=== PATIENT | male | born 1935 | race Caucasian/White ===

== ENCOUNTER 2017-01-27 11:40 | Inpatient (IN) | payer OTHER, MEDICARE ==
--- NOTE | 2017-01-27 12:01 | PDOC ---
History of Present Illness - General Chief Complaint: Respiratory Stated Complaint: COUGH Time Seen by Provider: 01/27/17 12:00 - History of Present Illness Initial Comments: 01/27/17 12:43 Chief complaint: Coughing up blood History of present illness: Patient states that he coughed up blood mixed with clear sputum on Thursday 2 times, and again today. He admits an intermittent cough but no purulent sputum. No chest pain or shortness of breath. Review of systems: Leg swelling bilaterally since Thursday improves with recumbency. As noted, no chest pain, shortness of breath, abdominal pain, nausea , vomiting, diarrhea, urinary tract symptoms, new visual or focal neurologic symptoms, unsteadiness of gait. His Parkinson's disease is stable Past medical history: Parkinson's on levo dopa, borderline glucose intolerance, high blood pressure, controlled without medication. Bladder cancer, resolved Social history: Lives with his , active, no smoking alcohol or other drugs Family history: Reviewed and noncontributory including early coronary artery disease, neurologic disease, metabolic disease including diabetes, and cancer Physical exam: Alert, somewhat cachectic, no acute distress. No tachypnea or dyspnea noted Afebrile, vital signs stable except for a moderately low oxygen saturation of 90 % on room air. PERRLA, fundi benign, ENT clear Neck supple without bruit mass or nodes Lungs clear to P&A with full breath sounds throughout bilaterally. No tachypnea or dyspnea. No splinting. CV S1 and S2 distant without murmur rub or gallop pulses full and symmetric no JVD or edema Abdomen soft nontender without mass or organomegaly Extremities trace pedal edema bilaterally. No posterior calf swelling or tenderness Neurological minimal tremor, minimal rigidity, no focal deficits, cranial nerves intact, gait stable Impression: Hemoptysis without definite evidence of respiratory infection including fever, or purulent sputum. This could still be an occult bronchitis or pneumonia, but less likely pulmonary embolus, even though there is been no travel, no hormone use, and no smoking Plan: Labs and chest x-ray, consider further imaging if indicated. O2 supplementation. Past History - Past Medical History Allergies/Adverse Reactions: Allergies Allergy/AdvReac Type Severity Reaction Status Date / Time No Known Allergies Allergy Verified 01/27/17 11:43 Home Medications: Ambulatory Orders Multivitamin [Daily Vitamin Formula] 1 each PO DAILY tablet 11/17/16 Carbidopa/Levodopa [Carbidopa-Levodopa 25-100 Tab] 1 each PO TID tablet Cancer: Yes (BLADDER CA) Diabetes: Yes HTN: Yes Hypercholesterolemia: Yes Other medical history: PARKINSON'S - Surgical History Abdominal Surgery: Yes - Psycho/Social/Smoking Cessation Hx Anxiety: No Suicidal Ideation: No Smoking History: Never smoked Information on smoking cessation initiated: No *Physical Exam - Vital Signs Last Vital Signs Temp Pulse Resp BP Pulse Ox 98.6 F 95 H 17 142/71 90 L 01/27/17 11:40 01/27/17 11:40 01/27/17 11:40 01/27/17 11:40 01/27/17 11:40 ED Treatment Course - LABORATORY CBC & Chemistry Diagram: 01/27/17 12:20 01/27/17 12:20 Medical Decision Making - Medical Decision Making 01/27/17 16:51 White blood count is normal. Remainder of the labs and urine without significant abnormalities. EKG with no acute changes. 01/27/17 18:11 Chest x-ray reveals diffuse infiltrates in both lung cisse, most dramatic in the left lower lobe, also visible on lateral. This is in tyson contrast to a prior x-ray from 12/01/2016, which was clear. This is likely a viral pneumonia, although diffuse interstitial lung disease or even tuberculosis are possibilities. Patient is admitted to the hospitalist service, discussed with WINIFRED Leal Hospitalist, acting for Dr. Card. Concern for atypical pneumonia or TB was discussed. Cultures were obtained and antibiotics were started, and the patient is awaiting a negative pressure bed. He is hemodynamically stable. 01/27/17 18:16 *DC/Admit/Observation/Transfer Diagnosis at time of Disposition: Pneumonia Qualifiers: Pneumonia type: due to unspecified organism Laterality: bilateral Lung location : lower lobe of lung Qualified Code(s): J18.9 - Pneumonia, unspecified organism - Discharge Dispostion Condition at time of disposition: Stable Admit: Yes - Referrals Referrals: Edy Luevano MD [Primary Care Provider] -
[2017-01-27 12:31] LABS: BASOPHIL 2.2 % (0-2.0); EOSINOPHIL 0.6 % (0-4.5); MCH 26.9 pg (25.7-33.7); MCHC 32.9 g/dl (32.0-35.9); MEAN CELL VOLUME 81.9 fl (80-96); NEUTROPHILS 59.5 % (42.8-82.8); PLATELET COUNT 246 K/MM3 (134-434); RDW 16.6 % (11.9-15.9); WHITE BLOOD COUNT 4.4 K/mm3 (4.0-10.8)
[2017-01-27 12:36] LABS: PH,URINE 5.5 (4.5-8); URINE APPEARANCE Clear; URINE BILIRUBIN Negative (NEGATIVE); URINE BLOOD Negative (NEGATIVE); URINE GLUCOSE (UA) Negative (NEGATIVE); URINE KETONE Negative (NEGATIVE); URINE LEUK ESTERASE Negative (NEGATIVE); URINE NITRITE Negative (NEGATIVE); URINE UROBILINOGEN 1.0 E.U/dl (0.2-1.0)
[2017-01-27 12:37] LABS: URINE COLOR YELLOW; URINE PROTEIN 1+ (NEGATIVE); URINE RBC 0-3 /hpf (0-3); URINE WBC 0-3 (3-5)
[2017-01-27 12:38] LABS: URINE BACTERIA FEW /hpf (NEGATIVE)
[2017-01-27 12:44] LABS: INR 1.01 (0.82-1.09); PROTHROMBIN TIME (PATIENT) 11.3 SEC (10.2-13.0)
[2017-01-27 12:49] LABS: ALBUMIN 3.2 g/dl (3.5-5.0); ALK PHOS 144 U/L (32-92); ANION GAP 7 (8-16); BILIRUBIN,TOTAL 0.8 mg/dl (0.2-1.0); CO2 27 mmol/L (22-28); CPK(DFH) 69 IU/L (38-174); CREATININE 1.1 mg/dl (0.6-1.3); GLUCOSE,RANDOM 139 mg/dl (74-106); SGOT/AST 83 U/L (10-42); SGPT/ALT 22 U/L (10-40); TOT PROT 5.9 g/dl (6.4-8.3)
[2017-01-27 13:25] LABS: ALLENS TEST POSITIVE; ART PUNCT SITE RIGHT RADIAL; ARTERIAL BLD GAS O2 SATURATION 92.8 % (90-98.9); ARTERIAL BLOOD GAS BASE EXCESS 4.3 meq/l (-2-2); ARTERIAL BLOOD GAS HCO3 26.8 meq/L (22-26); ARTERIAL BLOOD GAS PO2 62.8 mmHg (70-100); LPM/O2% 2.5L; PT. ON O2? YES
[2017-01-27 13:26] LABS: TYPE OF O2 NASAL O2
[2017-01-27 13:27] LABS: ARTERIAL BLOOD GAS pH 7.51 (7.35-7.45)
[2017-01-27] MEDS: SODIUM CHLORIDE 1,000 ML IV SCH (13:30)
[2017-01-27] MEDS ORDERED: AZITHROMYCIN IVPB 500 MG in DEXTROSE 5%-WATER - 250 ML IVPB ONE (14:28)
[2017-01-27] MEDS ORDERED: CEFTRIAXONE 1,000 MG in DEXTROSE 5%-WATER - 50 ML IVPB ONE (14:28)
[2017-01-27] MEDS ORDERED: AZITHROMYCIN 500 MG VIAL IVPB ONE (14:46)
[2017-01-27] MEDS ORDERED: cefTRIAXone SODIUM 1 GM VIAL ONE (14:46)
[2017-01-27 16:45] LABS: TROPONIN I (DFP) < 0.03 ng/ml (0.03-0.50)
[2017-01-27] MEDS ORDERED: ACETAMINOPHEN 325 MG TABLET (FP) ONE (18:21)
[2017-01-27] MEDS ORDERED: ACETAMINOPHEN 325 MG TABLET (FP) PO ONE (18:24)
--- NOTE | 2017-01-27 21:58 | HP ---
CHIEF COMPLAINT: Hemoptysis, Cough PCP: Dr. Luevano HISTORY OF PRESENT ILLNESS: This is a 72 y/o male with a past medical history of Hypertension (no meds), Parkinsons, Borderline DM ( diet controlled), Bladder Ca (remission). Who presents to the ED from the PMD with productive cough, hemoptysis x 2 days. Patient reports he started having a productive cough with clear sputum, he then reports having 2 episodes of blood tinged sputum. Patient denies night sweats, unintentional weight loss. Patient denies recent exposure to sick contacts or travel. patient denies fever, chills, SOB, dizzinss, CP, AP, N/V/D, constipation , melena, hematochezia, dysuria, hematuria ER course was notable for: (1) Chest Xray- bilateral infiltrates (2) Hypoxia- on arrival Spo2 90% RA (3) AB.5/33.8/62.8/26.8 on 2.5L (4) K: 5.3 Recent Travel: None PAST MEDICAL HISTORY: See HPI PAST SURGICAL HISTORY: Social History: Smoking: Never Alcohol: Denies Drugs: Denies Lives with , independent Family History: Allergies No Known Allergies Allergy (Verified 01/27/17 11:43) HOME MEDICATIONS: Home Medications Medication Instructions Recorded Multivitamin [Daily Vitamin 1 each PO DAILY tablet 11/17/16 Formula] Carbidopa/Levodopa 1 each PO TID tablet 01/27/17 [Carbidopa-Levodopa 25-100 Tab] REVIEW OF SYSTEMS CONSTITUTIONAL: Absent: fever, chills, diaphoresis, generalized weakness, malaise, loss of appetite, weight change HEENT: Absent: rhinorrhea, nasal congestion, throat pain, throat swelling, difficulty swallowing, mouth swelling, ear pain, eye pain, visual changes CARDIOVASCULAR: Absent: chest pain, syncope, palpitations, irregular heart rate, lightheadedness , peripheral edema RESPIRATORY: cough, hemoptysis Absent: shortness of breath, dyspnea with exertion, orthopnea, wheezing, stridor GASTROINTESTINAL: Absent: abdominal pain, abdominal distension, nausea, vomiting, diarrhea, constipation, melena, hematochezia GENITOURINARY: Absent: dysuria, frequency, urgency, hesitancy, hematuria, flank pain, genital pain MUSCULOSKELETAL: Absent: myalgia, arthralgia, joint swelling, back pain, neck pain SKIN: Absent: rash, itching, pallor HEMATOLOGIC/IMMUNOLOGIC: Absent: easy bleeding, easy bruising, lymphadenopathy, frequent infections ENDOCRINE: Absent: unexplained weight gain, unexplained weight loss, heat intolerance, cold intolerance NEUROLOGIC: Absent: headache, focal weakness or paresthesias, dizziness, unsteady gait, seizure, mental status changes, bladder or bowel incontinence PSYCHIATRIC: Absent: anxiety, depression, suicidal or homicidal ideation, hallucinations. PHYSICAL EXAMINATION GENERAL: Cachetic, Awake, alert, and fully oriented, in no acute distress. HEAD: Normal with no signs of trauma. EYES: Pupils equal, round and reactive to light, extraocular movements intact, sclera anicteric, conjunctiva clear. No lid lag. EARS, NOSE, THROAT: Ears normal, nares patent, oropharynx clear without exudates. Moist mucous membranes. NECK: Normal range of motion, supple without lymphadenopathy, JVD, or masses. LUNGS: Breath sounds equal, diminished at bases. No wheezes, and no crackles. No accessory muscle use. HEART: Regular rate and rhythm, normal S1 and S2, No rub, murmur or gallop. ABDOMEN: Soft, nontender, not distended, normoactive bowel sounds, no guarding, no rebound, no masses. No hepatomegaly or splenomegaly. MUSCULOSKELETAL: Normal range of motion at all joints. No bony deformities or tenderness. No CVA tenderness. UPPER EXTREMITIES: 2+ pulses, warm, well-perfused. No cyanosis. No clubbing. No peripheral edema. LOWER EXTREMITIES: 2+ pulses, warm, well-perfused. No calf tenderness. +trace peripheral edema bilaterally. NEUROLOGICAL: Cranial nerves II-XII intact. Normal speech. Normal gait. PSYCHIATRIC: Cooperative. Good eye contact. Appropriate mood and affect. SKIN: Warm, dry, normal turgor, no rashes or lesions noted, normal capillary refill. Laboratory Results - last 24 hr 01/27/17 01/27/17 01/27/17 12:20 12:20 12:20 WBC 4.4 RBC 5.30 Hgb 14.3 Hct 43.4 MCV 81.9 MCHC 32.9 RDW 16.6 H D Plt Count 246 MPV 8.0 Neutrophils % 59.5 Lymphocytes % 27.1 Monocytes % 10.6 H Eosinophils % 0.6 Basophils % 2.2 H INR 1.01 PTT (Actin FS) Anticoagulation Therapy Puncture Site ABG pH ABG pCO2 at Pt Temp ABG pO2 at Pt Temp ABG HCO3 ABG O2 Sat (Measured) ABG O2 Content ABG Base Excess Christiano Test O2 Delivery Device Oxygen Flow Rate Vent Mode Vent Rate Mechanical Rate Pressure Support Vent Sodium 135 L Potassium 5.3 H D Chloride 101 Carbon Dioxide 27 Anion Gap 7 L BUN 23 H Creatinine 1.1 D Creat Clearance w eGFR > 60 Random Glucose 139 H D Lactic Acid Calcium 10.0 Total Bilirubin 0.8 D AST 83 H ALT 22 D Alkaline Phosphatase 144 H Creatine Kinase Troponin I Total Protein 5.9 L Albumin 3.2 L Urine Color Urine Appearance Urine pH Ur Specific Ramona Urine Protein Urine Glucose (UA) Urine Ketones Urine Blood Urine Nitrite Urine Bilirubin Urine Urobilinogen Ur Leukocyte Esterase Urine RBC Urine WBC Ur Epithelial Cells Urine Bacteria Hyaline Casts 01/27/17 01/27/17 01/27/17 12:20 12:20 12:25 WBC RBC Hgb Hct MCV MCHC RDW Plt Count MPV Neutrophils % Lymphocytes % Monocytes % Eosinophils % Basophils % INR PTT (Actin FS) 26.7 Anticoagulation Therapy Y Puncture Site Right radial ABG pH 7.51 H ABG pCO2 at Pt Temp 33.8 L ABG pO2 at Pt Temp 62.8 L ABG HCO3 26.8 H ABG O2 Sat (Measured) 92.8 ABG O2 Content 16.3 ABG Base Excess 4.3 H Christiano Test Positive O2 Delivery Device Nasal o2 Oxygen Flow Rate 2.5l Vent Mode Y Vent Rate Y Mechanical Rate Y Pressure Support Vent Y Sodium Potassium Chloride Carbon Dioxide Anion Gap BUN Creatinine Creat Clearance w eGFR Random Glucose Lactic Acid Calcium Total Bilirubin AST ALT Alkaline Phosphatase Creatine Kinase 69 Troponin I < 0.03 L Total Protein Albumin Urine Color Urine Appearance Urine pH Ur Specific Ramona Urine Protein Urine Glucose (UA) Urine Ketones Urine Blood Urine Nitrite Urine Bilirubin Urine Urobilinogen Ur Leukocyte Esterase Urine RBC Urine WBC Ur Epithelial Cells Urine Bacteria Hyaline Casts 01/27/17 01/27/17 12:30 14:50 WBC RBC Hgb Hct MCV MCHC RDW Plt Count MPV Neutrophils % Lymphocytes % Monocytes % Eosinophils % Basophils % INR PTT (Actin FS) Anticoagulation Therapy Puncture Site ABG pH ABG pCO2 at Pt Temp ABG pO2 at Pt Temp ABG HCO3 ABG O2 Sat (Measured) ABG O2 Content ABG Base Excess Christiano Test O2 Delivery Device Oxygen Flow Rate Vent Mode Vent Rate Mechanical Rate Pressure Support Vent Sodium Potassium Chloride Carbon Dioxide Anion Gap BUN Creatinine Creat Clearance w eGFR Random Glucose Lactic Acid 1.6 Calcium Total Bilirubin AST ALT Alkaline Phosphatase Creatine Kinase Troponin I Total Protein Albumin Urine Color Yellow Urine Appearance Clear Urine pH 5.5 Ur Specific Ramona 1.025 Urine Protein 1+ H Urine Glucose (UA) Negative Urine Ketones Negative Urine Blood Negative Urine Nitrite Negative Urine Bilirubin Negative Urine Urobilinogen 1.0 e.u/dl Ur Leukocyte Esterase Negative Urine RBC 0-3 Urine WBC 0-3 Ur Epithelial Cells Few Urine Bacteria Few Hyaline Casts 3-5 ASSESSMENT/PLAN: This is a 81 y/o male with a PMHx of: HTN (no meds), Border Line DM (diet controlled), Parkinson's, Bladder Ca (in remission). Admitted with Community Acquired Pneumonia, Hemoptysis for further evaluation of their emergent condition Plan: 1. Community Acquired Pneumonia - Patient reports cough with blood tinged sputum - [id number] Score 2 - Blood Cultures-pending - Appreciate ID Consult - No leukocytosis, no L-shift likely Atypical PNA - Started on empiric ABX- Ceftriaxone/Azithromycin - Will continue ABX until reports - Monitor vitals - Repeat CBC, BMP - Urine Legionella 2. Hypoxia - Likely secondary to PNA vs TB vs Malignancy - Isolation Precautions- Respiratory/Airborne - ABG obtained- shown to be Hypoxic - Patient improved on 3-4L nasal cannula - Sputum Culture - AFB culture/smear - O2 - Duoneb prn 3. Hyperkalemia - Kayexelate ordered x1 now - EKG reviewed no Peaked Ts - Repeat BMP in am 4. Border Line Diabetes - Stable - Monitor BGMs - ISS - HgbA1C in am - Monitor renal function 5. Hypertension - Controlled - Monitor BP - Consider EMILY for renal protection 6. Parkinson's - Continue Levodopa 7. Bladder Ca - Per patient in remission 8. FEN - Tolerates Po fluids - Monitor K - Low Na Diet 9. DVT Prophylaxis - OOB - SCDs - Will hold AC secondary to Hemoptysis Code Status: Full Code Dispo: Requires Inpatient Care Problem List - Problem (1) Pneumonia Code(s): J18.9 - PNEUMONIA, UNSPECIFIED ORGANISM Qualifiers: Pneumonia type: due to unspecified organism Laterality: bilateral Lung location: lower lobe of lung Qualified Code(s): J18.9 - Pneumonia, unspecified organism (2) Cough with hemoptysis Code(s): R04.2 - HEMOPTYSIS (3) Hyperkalemia Code(s): E87.5 - HYPERKALEMIA (4) HTN (hypertension) Code(s): I10 - ESSENTIAL (PRIMARY) HYPERTENSION (5) Parkinson disease Code(s): G20 - PARKINSON'S DISEASE (6) Bladder cancer Code(s): C67.9 - MALIGNANT NEOPLASM OF BLADDER, UNSPECIFIED (7) DVT prophylaxis Code(s): SXT6841 - Visit type - Emergency Visit Emergency Visit: Yes ED Registration Date: 01/27/17 Care time: The patient presented to the Emergency Department on the above date and was hospitalized for further evaluation of their emergent condition. - New Patient This patient is new to me today: Yes Date on this admission: 01/27/17 - Critical Care Critical Care patient: No
[2017-01-27] MEDS ORDERED: CARBIDOPA/LEVODOPA 25/100 TABLET (FP) PO SCH (23:00)
[2017-01-27] MEDS ORDERED: DEXTROSE 50%-WATER - 25 GM/50 ML VIAL IVPUSH ONE (23:01)
[2017-01-27] MEDS ORDERED: INSULIN REGULAR HUMAN 100 UNITS/ML *VIAL IVPUSH ONE (23:02)
[2017-01-27] MEDS ORDERED: ALBUTEROL SO4 0.083% IH SOL 2.5 MG/3 ML VIAL.NEB. NEB ONE (23:03)
[2017-01-27] MEDS ORDERED: SODIUM POLYSTYRENE SULFONATE 15 GM/60 ML BOTTLE PO ONE ×2 (23:09→23:45)
[2017-01-27] MEDS: CARBIDOPA/LEVODOPA 25/100 TABLET (FP) PO SCH (23:54)
[2017-01-28] MEDS: CARBIDOPA/LEVODOPA 25/100 TABLET (FP) PO SCH ×3 (06:16→23:33)
[2017-01-28 07:59] LABS: BASOPHIL 0.9 % (0-2.0); EOSINOPHIL 1.2 % (0-4.5); MCH 26.9 pg (25.7-33.7); MCHC 32.8 g/dl (32.0-35.9); MEAN PLT VOLUME 7.8 fl (7.5-11.1); PLATELET COUNT 205 K/MM3 (134-434); RDW 16.7 % (11.9-15.9); WHITE BLOOD COUNT 4.2 K/mm3 (4.0-10.0)
[2017-01-28 08:27] LABS: ALBUMIN 2.6 g/dl (3.4-5.0); ANION GAP 7 (8-16); BILIRUBIN,TOTAL 0.7 mg/dL (0.2-1.0); CO2 29 mmol/L (21-32); CREATININE 1.1 mg/dL (0.7-1.3); GLUCOSE,RANDOM 98 mg/dL (74-106); SGOT/AST 56 U/L (15-37); TOT PROT 5.3 g/dl (6.4-8.2)
[2017-01-28 08:34] LABS: ALK PHOS 157 U/L (45-117); CALCIUM 9.2 mg/dL (8.5-10.1); SGPT/ALT 10 U/L (12-78)
[2017-01-28] MEDS ORDERED: AZITHROMYCIN IVPB 500 MG in DEXTROSE 5%-WATER - 250 ML IVPB SCH (10:00)
[2017-01-28] MEDS ORDERED: CEFTRIAXONE 1 GM in DEXTROSE 5%-WATER - 100 ML IVPB SCH (10:00)
[2017-01-28] MEDS: cefTRIAXone 1 GM/50 ML BAG (PRE-DOCKED) IVPB SCH (10:43)
[2017-01-28] MEDS: MULTIVITAMINS (DAILY MVI) TABLET (FP) PO SCH (10:43)
[2017-01-28] MEDS: SODIUM CHLORIDE 1,000 ML IV SCH ×2 (10:50→15:27)
[2017-01-28] MEDS: AZITHROMYCIN IVPB 500 MG/250 ML D5W PRE-DOCKED IVPB SCH (13:00)
--- NOTE | 2017-01-28 13:04 | CONSULT ---
Consult Consult Specialty:: infectious diseases Reason for Consultation:: pna,hemoptysis, - History of Present Illness Chief Complaint: hemoptysis History of Present Illness: 81 y/o patient admitted for hemoptysis.patient with h/o of parkinsonian disease and bladder ca started having hemoptysis on thursday and then again recently and was admitted.also patient c/o of weight loss and swelling of legs patient denies any other symptoms of sob fever denies any travel outside no contact with anyone with tb or history of tb currently he feels better but still had hemoptysis earlier this morning - History Source History Provided By: Patient Limitations to Obtaining History: No Limitations - Alcohol/Substance Use Hx Alcohol Use: No - Smoking History Smoking history: Never smoked Home Medications - Allergies Allergies/Adverse Reactions: Allergies Allergy/AdvReac Type Severity Reaction Status Date / Time No Known Allergies Allergy Verified 01/27/17 11:43 - Home Medications Home Medications: Ambulatory Orders Multivitamin [Daily Vitamin Formula] 1 each PO DAILY tablet 11/17/16 Carbidopa/Levodopa [Carbidopa-Levodopa 25-100 Tab] 1 each PO TID tablet Review of Systems - Review of Systems Constitutional: reports: Unintentional Wgt. Loss, Weakness Eyes: reports: No Symptoms HENT: reports: No Symptoms Neck: reports: No Symptoms Respiratory: reports: Cough, Hemoptysis Gastrointestinal: reports: No Symptoms Genitourinary: reports: No Symptoms Musculoskeletal: reports: No Symptoms Integumentary: reports: No Symptoms Neurological: reports: No Symptoms Endocrine: reports: No Symptoms Hematology/Lymphatic: reports: No Symptoms Physical Exam Vital Signs: Vital Signs Temperature 98 F 01/28/17 06:14 Pulse Rate 98 H 01/28/17 06:14 Respiratory Rate 20 01/28/17 06:14 Blood Pressure 152/86 01/28/17 06:14 O2 Sat by Pulse Oximetry (%) 95 01/27/17 21:19 Constitutional: Yes: Thin Eyes: Yes: Conjunctiva Clear HENT: Yes: Atraumatic Neck: Yes: Supple Cardiovascular: Yes: Regular Rate and Rhythm Respiratory: Yes: Regular, Rhonchi Gastrointestinal: Yes: Normal Bowel Sounds, Soft Musculoskeletal: Yes: WNL Extremities: Yes: WNL Neurological: Yes: Alert, Oriented Psychiatric: Yes: Alert, Oriented Labs: CBC, BMP 01/28/17 06:30 01/28/17 06:30 Imaging - Results Chest X-ray: Report Reviewed, Image Reviewed Assessment/Plan parkinsonian diseases hemoptysis r/o tb r/o malignancy r/o pna i think patient has malignancy plan ct of the chest will start patient on abx await for sputum cx to be back rest as per primary
--- NOTE | 2017-01-28 16:06 | PN ---
Physical Exam: SUBJECTIVE: Patient seen and examined OBJECTIVE: Vital Signs Period Temp Pulse Resp BP Sys/Chowdhury Pulse Ox Last 24 Hr 98 F-99.1 F 93-98 20-20 143-152/73-86 GENERAL: The patient is awake, alert, and fully oriented, in no acute distress. Thin. HEAD: Normal with no signs of trauma. LUNGS: Breath sounds equal, clear to auscultation bilaterally, no wheezes, no crackles, no accessory muscle use. HEART: Regular rate and rhythm, S1, S2 without murmur, rub or gallop. ABDOMEN: Soft, nontender, nondistended, normoactive bowel sounds, no guarding, no rebound EXTREMITIES: 2+ pulses, warm, well-perfused, no edema. NEUROLOGICAL: Cranial nerves II through XII grossly intact. Slightly halting speech pattern. Laboratory Results - last 24 hr 01/28/17 01/28/17 01/28/17 06:30 06:30 06:45 WBC 4.2 RBC 4.62 Hgb 12.4 Hct 37.8 MCV 82.0 MCHC 32.8 RDW 16.7 H Plt Count 205 MPV 7.8 Neutrophils % 64.0 Lymphocytes % 22.8 Monocytes % 11.1 H Eosinophils % 1.2 Basophils % 0.9 Sodium 141 Potassium 3.5 Chloride 105 Carbon Dioxide 29 Anion Gap 7 L BUN 21 H Creatinine 1.1 Creat Clearance w eGFR > 60 Random Glucose 98 Hemoglobin A1c % 7.4 H D Calcium 9.2 Total Bilirubin 0.7 AST 56 H ALT 10 L Alkaline Phosphatase 157 H Total Protein 5.3 L Albumin 2.6 L Current Medications Generic Name Dose Route Start Last Admin Trade Name Kelsy PRN Reason Stop Dose Admin Albuterol/Ipratropium 1 amp 01/28/17 22:00 Duoneb - NEB TIDR MARILYN Azithromycin 500 mg 01/28/17 10:00 01/28/17 13:00 Zithromax 500mg Ivpb (Pre-Docked) IVPB 500 mg DAILY MARILYN Administration Carbidopa/Levodopa 1 each 01/27/17 23:45 01/28/17 15:29 Sinemet 25/100 - PO 1 each TID MARILYN Administration Ceftriaxone Sodium 1 gm 01/28/17 10:00 01/28/17 10:43 Rocephin 1gm Ivpb (Pre-Docked) IVPB 1 gm DAILY MARILYN Administration Multivitamins/Minerals/Vitamin C 1 tab 01/28/17 10:00 01/28/17 10:43 Tab-A-Vit - PO 1 tab DAILY MARILYN Administration Recent Imaging 12/01/16 CXR: mild COPD 12/03/16 Echo: mild asymmetric LVH; LV normal; RV normal; BLAE; trace MR 12/09/16 Upper GI series: duodenal diverticulum, otherwise unremarkable 12/13/16 US renal/bladder: unremarkable 12/25/16 MRI brain: no acute process; mild chronic sinusitis 01/27/17 CXR: airspace opacities bilaterally ASSESSMENT/PLAN: 81 year-old man with a PMH of HTN, mild COPD, bladder cancer (x 5 years s/p chemo), and diagnosed 8 weeks ago with Parkinson's Disease. Patient presents with complaint of cough and hemoptysis x 2 days. Cough Hemoptysis Mild COPD Hypoxia Hypoxemia --hypoxic to 90% on RA on arrival; PaO2 62 on 33% FiO2 --01/27 CXR: airspace opacities --CT chest ordered --Quant Gold pending; --AFB x 3 ordered --start empiric ceftriaxone and azithromycin --duonebs --titrate O2 to 95% Hypertension --on no home meds --will monitor Bladder cancer --no acute issues Parkinson's disease --continue carbidopa/levodopa F/E/N Fluids: PO intake adequate Electrolytes: replee as indicated Nutrition: low sodium diet DVT prophylaxis: subq heparin, oob, ambulation PT evaluation Daily PT Dispo: continues to require inpatient care. Full Code. Visit type - Emergency Visit Emergency Visit: Yes ED Registration Date: 01/27/17 Care time: The patient presented to the Emergency Department on the above date and was hospitalized for further evaluation of their emergent condition. - New Patient This patient is new to me today: Yes Date on this admission: 01/28/17 - Critical Care Critical Care patient: No
[2017-01-28] MEDS ORDERED: ALBUTEROL SO4 2.5/IPRATROPIUM 0.5 INH SOL 3 ML VIAL.NEB. NEB STA (17:39)
[2017-01-28] MEDS ORDERED: ALBUTEROL SO4 2.5/IPRATROPIUM 0.5 INH SOL 3 ML VIAL.NEB. NEB SCH (22:00)
[2017-01-28] MEDS: ALBUTEROL SO4 2.5/IPRATROPIUM 0.5 INH SOL 3 ML VIAL.NEB. NEB SCH (22:30)
[2017-01-28] MEDS: HEPARIN NA (PORCINE) 5,000 UNITS/ML 1ML VIAL SQ SCH (23:33)
[2017-01-29] MEDS: ALBUTEROL SO4 2.5/IPRATROPIUM 0.5 INH SOL 3 ML VIAL.NEB. NEB SCH ×2 (06:01→14:15)
[2017-01-29] MEDS: CARBIDOPA/LEVODOPA 25/100 TABLET (FP) PO SCH ×3 (06:41→22:01)
[2017-01-29 07:05] LABS: ALBUMIN 2.8 g/dl (3.4-5.0); ANION GAP 9 (8-16); CALCIUM 9.4 mg/dL (8.5-10.1); CO2 26 mmol/L (21-32); GLUCOSE,RANDOM 122 mg/dL (74-106); MAGNESIUM 1.9 mg/dL (1.8-2.4)
[2017-01-29 07:09] LABS: ALK PHOS 163 U/L (45-117); BASOPHIL 0.7 % (0-2.0); BILIRUBIN,TOTAL 0.7 mg/dL (0.2-1.0); EOSINOPHIL 0.3 % (0-4.5); MCH 27.1 pg (25.7-33.7); MCHC 33.1 g/dl (32.0-35.9); NEUTROPHILS 56.1 % (42.8-82.8); PLATELET COUNT 221 K/MM3 (134-434); RDW 16.9 % (11.9-15.9); SGOT/AST 60 U/L (15-37); SGPT/ALT 12 U/L (12-78); TOT PROT 5.7 g/dl (6.4-8.2); WHITE BLOOD COUNT 5.6 K/mm3 (4.0-10.0)
--- NOTE | 2017-01-29 10:08 | PN ---
Physical Exam: SUBJECTIVE: Patient seen and examined at bedside. present. Lengthy conversation about how long patient has had symptoms of Parkinson's but went undiagnosed. Has only been on carba/levo for 8 weeks. describes frequent clearing of throat of mucous, and coughing with eating. Weak cough. OBJECTIVE: Vital Signs Period Temp Pulse Resp BP Sys/Chowdhury Pulse Ox Last 24 Hr 98.3 F-99.3 F 97-112 20-20 144-156/75-84 GENERAL: The patient is awake, alert, and fully oriented, in no acute distress. Thin. HEAD: Normal with no signs of trauma. LUNGS: Breath sounds equal, clear to auscultation bilaterally, no wheezes, no crackles, no accessory muscle use. HEART: Regular rate and rhythm, S1, S2 without murmur, rub or gallop. ABDOMEN: Soft, nontender, nondistended, normoactive bowel sounds, no guarding, no rebound EXTREMITIES: 2+ pulses, warm, well-perfused, no edema. NEUROLOGICAL: Cranial nerves II through XII grossly intact. Slightly halting speech pattern. Laboratory Results - last 24 hr 01/29/17 01/29/17 01/29/17 06:00 06:00 18:40 WBC 5.6 D RBC 4.66 Hgb 12.6 Hct 38.2 MCV 82.0 MCHC 33.1 RDW 16.9 H Plt Count 221 MPV 8.0 Neutrophils % 56.1 Lymphocytes % 31.7 D Monocytes % 11.2 H Eosinophils % 0.3 Basophils % 0.7 Puncture Site Right radial ABG pH 7.53 H ABG pCO2 at Pt Temp 30.7 L ABG pO2 at Pt Temp 57.1 L ABG HCO3 25.8 ABG O2 Sat (Measured) 91.6 ABG O2 Content 14.4 L ABG Base Excess 3.8 H Christiano Test Positive O2 Delivery Device nasal Oxygen Flow Rate 6l PEEP 0.0 Sodium 142 Potassium 3.7 Chloride 107 Carbon Dioxide 26 Anion Gap 9 BUN 19 H Creatinine 1.0 Creat Clearance w eGFR > 60 Random Glucose 122 H D Calcium 9.4 Magnesium 1.9 Total Bilirubin 0.7 AST 60 H ALT 12 Alkaline Phosphatase 163 H Total Protein 5.7 L Albumin 2.8 L Current Medications Generic Name Dose Route Start Last Admin Trade Name Freq PRN Reason Stop Dose Admin Acetaminophen 650 mg 01/29/17 18:25 Tylenol - PO Q6H PRN FEVER OR PAIN Albuterol/Ipratropium 1 amp 01/29/17 20:00 Duoneb - NEB Q6H MARILYN Carbidopa/Levodopa 1 each 01/27/17 23:45 01/29/17 15:24 Sinemet 25/100 - PO 1 each TID MARILYN Administration Heparin Sodium (Porcine) 5,000 unit 01/28/17 22:00 01/29/17 10:19 Heparin - SQ 5,000 unit BID MARILYN Administration Lisinopril 10 mg 01/29/17 20:00 Prinivil PO DAILY MARILYN Multivitamins/Minerals/Vitamin C 1 tab 01/28/17 10:00 01/29/17 10:19 Tab-A-Vit - PO 1 tab DAILY MARILYN Administration Piperacillin Sod/Tazobactam Sod 3.375 gm 01/29/17 19:30 Zosyn 3.375gm Ivpb (Pre-Docked) IVPB Q8H-IV MARILYN Protocol Piperacillin Sod/Tazobactam Sod 3.375 gm 01/29/17 19:45 01/29/17 19:47 Zosyn 3.375gm Ivpb (Pre-Docked) IVPB 01/30/17 03:46 3.375 gm Q8H MARILYN Administration ASSESSMENT/PLAN: Recent Imaging 12/01/16 CXR: mild COPD 12/03/16 Echo: mild asymmetric LVH; LV normal; RV normal; BLAE; trace MR 12/09/16 Upper GI series: duodenal diverticulum, otherwise unremarkable 12/13/16 US renal/bladder: unremarkable 12/25/16 MRI brain: no acute process; mild chronic sinusitis 01/27/17 CXR: airspace opacities bilaterally 01/28/17 CT chest: bilateral pneumonia ASSESSMENT/PLAN: 81 year-old man with a PMH of HTN, mild COPD, bladder cancer (x 5 years s/p chemo), and diagnosed 8 weeks ago with Parkinson's Disease. Patient presents with complaint of cough and hemoptysis x 2 days. Bilateral pneumonia likely secondary to aspiration Hemoptysis Mild COPD Hypoxia Hypoxemia --01/28 CT shows bilateral pneumonia --this evening hypoxic to 83% on 6L NC, PaO2 57 on 37% FiO2 --placed on 50% ventimask, repeat ABG at 8:00pm --switch to Zosyn, ID following --Quant Gold pending, AFB x 3 pending Hypertension --BP elevated --start lisinopril 10mg Bladder cancer --no acute issues Parkinson's disease --continue carbidopa/levodopa --consult placed for Dr. Andrade who is patient's neurologist F/E/N Fluids: PO intake adequate Electrolytes: replete as indicated Nutrition: low sodium diet DVT prophylaxis: subq heparin, oob, ambulation PT evaluation Daily PT Dispo: continues to require inpatient care. Full Code. Visit type - Emergency Visit Emergency Visit: Yes ED Registration Date: 01/27/17 Care time: The patient presented to the Emergency Department on the above date and was hospitalized for further evaluation of their emergent condition. - New Patient This patient is new to me today: No - Critical Care Critical Care patient: Yes Total Critical Care Time (in minutes): 60 Critical Care Statement: The care of this patient involved high complexity decision making to prevent further life threatening deterioration of the patient 's condition and/or to evalute & treat vital organ system(s) failure or risk of failure.
[2017-01-29] MEDS: HEPARIN NA (PORCINE) 5,000 UNITS/ML 1ML VIAL SQ SCH ×2 (10:19→22:01)
[2017-01-29] MEDS: AZITHROMYCIN IVPB 500 MG/250 ML D5W PRE-DOCKED IVPB SCH (10:19)
[2017-01-29] MEDS: MULTIVITAMINS (DAILY MVI) TABLET (FP) PO SCH (10:19)
[2017-01-29] MEDS: cefTRIAXone 1 GM/50 ML BAG (PRE-DOCKED) IVPB SCH (10:19)
--- NOTE | 2017-01-29 16:27 | PN ---
Progress Note, Physician History of Present Illness: patient feels much better no issues denies hemoptysis - Current Medication List Current Medications: Active Medications Albuterol/Ipratropium (Duoneb -) 1 amp NEB TIDR [facility] Last Admin: 01/29/17 14:15 Dose: 1 amp Azithromycin (Zithromax 500mg Ivpb (Pre-Docked)) 500 mg IVPB DAILY [facility] Last Admin: 01/29/17 10:19 Dose: 500 mg Carbidopa/Levodopa (Sinemet 25/100 -) 1 each PO TID [facility] Last Admin: 01/29/17 15:24 Dose: 1 each Ceftriaxone Sodium (Rocephin 1gm Ivpb (Pre-Docked)) 1 gm IVPB DAILY [facility] Last Admin: 01/29/17 10:19 Dose: 1 gm Heparin Sodium (Porcine) (Heparin -) 5,000 unit SQ BID [facility] Last Admin: 01/29/17 10:19 Dose: 5,000 unit Multivitamins/Minerals/Vitamin C (Tab-A-Vit -) 1 tab PO DAILY [facility] Last Admin: 01/29/17 10:19 Dose: 1 tab - Objective Vital Signs: Vital Signs Temperature 98.4 F 01/29/17 10:00 Pulse Rate 105 H 01/29/17 10:00 Respiratory Rate 20 01/29/17 10:00 Blood Pressure 143/74 01/29/17 10:00 O2 Sat by Pulse Oximetry (%) 92 L 01/29/17 10:00 Constitutional: Yes: No Distress, Calm, Thin Cardiovascular: Yes: Regular Rate and Rhythm Respiratory: Yes: Regular, CTA Bilaterally Gastrointestinal: Yes: Normal Bowel Sounds, Soft Musculoskeletal: Yes: Other Neurological: Yes: Alert, Oriented Psychiatric: Yes: Alert, Oriented Labs: CBC, BMP 01/29/17 06:00 01/29/17 06:00 INR, PTT INR 1.01 (0.82-1.09) 01/27/17 12:20 - ....Imaging Cat Scan: Report Reviewed, Image Reviewed Assessment/Plan parkinsonian diseases hemoptysis r/o tb r/o malignancy r/o pna ct scan of the chest noted,it is favouring more of a pneumonia,no specific findings noted plan await for cx report blood cx report negative will continue abx rest as per primary patient will otto a repeat ct scan down the road
[2017-01-29] MEDS ORDERED: ACETAMINOPHEN 325 MG TABLET (FP) PO PRN (18:25)
[2017-01-29] MEDS ORDERED: AMPICILLIN NA/SULBACTAM NA 3 GM in SODIUM CHLORIDE 100 ML IVPB SCH (18:45)
[2017-01-29 18:54] LABS: ARTERIAL BLD GAS O2 SATURATION 91.6 % (90-98.9); ARTERIAL BLOOD GAS BASE EXCESS 3.8 meq/l (-2-2); ARTERIAL BLOOD GAS HCO3 25.8 meq/L (22-26); ARTERIAL BLOOD GAS PO2 57.1 mmHg (70-100)
[2017-01-29 18:58] LABS: ALLENS TEST POSITIVE; ART PUNCT SITE RIGHT RADIAL; LPM/O2% 6L; PT. ON O2? YES
[2017-01-29 19:00] LABS: ARTERIAL BLOOD GAS pH 7.53 (7.35-7.45)
[2017-01-29] MEDS ORDERED: PIPERACILLIN/TAZOB 3.375 GM/50 ML PRE-DOCKED IVPB SCH ×2 (19:30→19:45)
[2017-01-29] MEDS ORDERED: ALBUTEROL SO4 2.5/IPRATROPIUM 0.5 INH SOL 3 ML VIAL.NEB. NEB SCH (20:00)
[2017-01-29] MEDS: LISINOPRIL 10 MG TABLET (FP) PO SCH (20:08)
[2017-01-29 20:46] LABS: ARTERIAL BLD GAS O2 SATURATION 93.1 % (90-98.9); ARTERIAL BLOOD GAS BASE EXCESS 3.1 meq/l (-2-2); ARTERIAL BLOOD GAS HCO3 25.3 meq/L (22-26); ARTERIAL BLOOD GAS PO2 62.5 mmHg (70-100)
[2017-01-29 20:48] LABS: ALLENS TEST POSITIVE; ART PUNCT SITE RIGHT RADIAL; ARTERIAL BLOOD GAS pH 7.52 (7.35-7.45); LPM/O2% 50%; PT. ON O2? YES; TYPE OF O2 VENTI MASK
[2017-01-30] MEDS: PIPERACILLIN/TAZOB 3.375 GM 50 ML IVPB SCH ×3 (01:32→18:20)
[2017-01-30] MEDS ORDERED: PIPERACILLIN/TAZOB 3.375 GM/50 ML PRE-DOCKED IVPB SCH (02:00)
[2017-01-30] MEDS: CARBIDOPA/LEVODOPA 25/100 TABLET (FP) PO SCH (05:51)
[2017-01-30] MEDS: ALBUTEROL SO4 2.5/IPRATROPIUM 0.5 INH SOL 3 ML VIAL.NEB. NEB SCH ×4 (06:36→23:35)
[2017-01-30 08:56] LABS: BASOPHIL 0.6 % (0-2.0); EOSINOPHIL 0.3 % (0-4.5); MCH 26.8 pg (25.7-33.7); MCHC 32.9 g/dl (32.0-35.9); MEAN CELL VOLUME 81.6 fl (80-96); MEAN PLT VOLUME 7.5 fl (7.5-11.1); NEUTROPHILS 68.1 % (42.8-82.8); PLATELET COUNT 210 K/MM3 (134-434); WHITE BLOOD COUNT 4.7 K/mm3 (4.0-10.0)
[2017-01-30 09:31] LABS: ALBUMIN 2.6 g/dl (3.4-5.0); ALK PHOS 132 U/L (45-117); ANION GAP 8 (8-16); BILIRUBIN,TOTAL 0.6 mg/dL (0.2-1.0); CALCIUM 9.3 mg/dL (8.5-10.1); CO2 30 mmol/L (21-32); GLUCOSE,RANDOM 108 mg/dL (74-106); MAGNESIUM 2.1 mg/dL (1.8-2.4); SGOT/AST 59 U/L (15-37); SGPT/ALT 8 U/L (12-78); TOT PROT 5.3 g/dl (6.4-8.2)
[2017-01-30 09:38] LABS: ARTERIAL BLD GAS O2 SATURATION 93.5 % (90-98.9); ARTERIAL BLOOD GAS BASE EXCESS 3.7 meq/l (-2-2); ARTERIAL BLOOD GAS HCO3 26.4 meq/L (22-26)
[2017-01-30 09:39] LABS: ALLENS TEST POSITIVE; ART PUNCT SITE RIGHT RADIAL; ARTERIAL BLOOD GAS PO2 65.1 mmHg (70-100); LPM/O2% 50; PT. ON O2? YES; TYPE OF O2 VENTI MASK
--- NOTE | 2017-01-30 10:22 | CONSULT ---
Consult - text type - Consultation Consultation Note: NEUROLOGY CONSULTATION is greatly appreciated: This 81 yo RH man with h/o HTN, DM, Bladder cancer is known to me after a few years of slowly progressive gait dysfunction with Parkinson's disease, started on Leva-Dopa 2 months ago (CR 25/100 TID with meals). He improved after this regarding is gait, no falls, regained ability to climb stairs, gained 3-5 lbs. No nausea or adverse effects. present at bedside and notes dysphagia with coughing after some meals. Now admitted with fever chills, SOB, Bibasilar infiltrates and increasing weakness. Labs sig for absence of leukocytosis, mild transaminitis, hypoxemia and elevated glycosylated hemoglobin AC-1. MEJIA: No bruits. No head trauma. NEURO: Mild OMS with decreased recall. Masked facies. Decreased gag Bradykinesia. No tremor. ++Cogwheel rigidity. Normal strength and reflexes. Downgoing toes. Decreased SHERI's. Normal FTN Normal sensation Flexed, shuffling, retropulsive. IMP: Parkinson's Disease. Mild OMS Aphasia with possible aspiration pneumonia SUGGEST: Check B12, TSH, RPR. Follow BG's. Consider Pulmonary consultation and speech and swallowing eval. Change Sinemet to CR 25/100 and give at 6AM, 11AM and 4PM. Feed patient between 7-8, 12-1 and 5-6, at peak of L-Dopa dose to improve swallowing. Neuro f/u scheduled for 03/02/17. Thank you very much, Julio Andrade MD
--- NOTE | 2017-01-30 10:23 | PN ---
Physical Exam: SUBJECTIVE: Patient seen and examined OBJECTIVE: Vital Signs Period Temp Pulse Resp BP Sys/Chowdhury Pulse Ox Last 24 Hr 99 F-99 F 95-101 20-20 142-147/72-74 93 GENERAL: The patient is awake, alert, and fully oriented, in no acute distress. Thin. HEAD: Normal with no signs of trauma. LUNGS: Breath sounds equal, clear to auscultation bilaterally, no wheezes, no crackles, no accessory muscle use. HEART: Regular rate and rhythm, S1, S2 without murmur, rub or gallop. ABDOMEN: Soft, nontender, nondistended, normoactive bowel sounds, no guarding, no rebound EXTREMITIES: 2+ pulses, warm, well-perfused, no edema. NEUROLOGICAL: Cranial nerves II through XII grossly intact. Slightly halting speech pattern. Laboratory Results - last 24 hr 01/29/17 01/29/17 01/30/17 18:40 20:10 08:20 WBC 4.7 RBC 4.31 Hgb 11.5 L Hct 35.1 L MCV 81.6 MCHC 32.9 RDW 17.0 H Plt Count 210 MPV 7.5 Neutrophils % 68.1 D Lymphocytes % 19.8 D Monocytes % 11.2 H Eosinophils % 0.3 Basophils % 0.6 Puncture Site Right radial Right radial ABG pH 7.53 H 7.52 H ABG pCO2 at Pt Temp 30.7 L 31.5 L ABG pO2 at Pt Temp 57.1 L 62.5 L ABG HCO3 25.8 25.3 ABG O2 Sat (Measured) 91.6 93.1 ABG O2 Content 14.4 L 15.0 ABG Base Excess 3.8 H 3.1 H Christiano Test Positive Positive O2 Delivery Device nasal Venti mask Oxygen Flow Rate 6l 50% PEEP 0.0 0.0 Sodium Potassium Chloride Carbon Dioxide Anion Gap BUN Creatinine Creat Clearance w eGFR Random Glucose Lactic Acid Calcium Magnesium Total Bilirubin AST ALT Alkaline Phosphatase Total Protein Albumin 01/30/17 01/30/17 01/30/17 08:20 08:20 09:25 WBC RBC Hgb Hct MCV MCHC RDW Plt Count MPV Neutrophils % Lymphocytes % Monocytes % Eosinophils % Basophils % Puncture Site Right radial ABG pH 7.50 H ABG pCO2 at Pt Temp 34.4 L ABG pO2 at Pt Temp 65.1 L ABG HCO3 26.4 H ABG O2 Sat (Measured) 93.5 ABG O2 Content 15.1 ABG Base Excess 3.7 H Christiano Test Positive O2 Delivery Device Venti mask Oxygen Flow Rate 50 PEEP Sodium 143 Potassium 3.7 Chloride 105 Carbon Dioxide 30 Anion Gap 8 BUN 17 Creatinine 1.0 Creat Clearance w eGFR > 60 Random Glucose 108 H Lactic Acid 1.4 Calcium 9.3 Magnesium 2.1 Total Bilirubin 0.6 AST 59 H ALT 8 L D Alkaline Phosphatase 132 H Total Protein 5.3 L Albumin 2.6 L Active Medications Generic Name Dose Route Start Last Admin Trade Name Freq PRN Reason Stop Dose Admin Acetaminophen 650 mg 01/29/17 18:25 Tylenol - PO Q6H PRN FEVER OR PAIN Albuterol/Ipratropium 1 amp 01/30/17 06:45 01/30/17 06:36 Duoneb - NEB 1 amp QIDR MARILYN Administration Heparin Sodium (Porcine) 5,000 unit 01/28/17 22:00 01/29/17 22:01 Heparin - SQ 5,000 unit BID MARILYN Administration Piperacillin Sod/Tazobactam Sod 50 mls @ 100 mls/hr 01/30/17 02:00 01/30/17 01: 32 Zosyn 3.375gm Ivpb (Pre-Docked) IVPB 100 mls/hr Q8H-IV MARILYN Administration Protocol Lisinopril 10 mg 01/29/17 20:00 01/29/17 20:08 Prinivil PO 10 mg DAILY MARILYN Administration Multivitamins/Minerals/Vitamin C 1 tab 01/28/17 10:00 01/29/17 10:19 Tab-A-Vit - PO 1 tab DAILY MARILYN Administration ASSESSMENT/PLAN: ASSESSMENT/PLAN: Recent Imaging 12/01/16 CXR: mild COPD 12/03/16 Echo: mild asymmetric LVH; LV normal; RV normal; BLAE; trace MR 12/09/16 Upper GI series: duodenal diverticulum, otherwise unremarkable 12/13/16 US renal/bladder: unremarkable 12/25/16 MRI brain: no acute process; mild chronic sinusitis 01/27/17 CXR: airspace opacities bilaterally 01/28/17 CT chest: bilateral pneumonia ASSESSMENT/PLAN: 81 year-old man with a PMH of HTN, mild COPD, bladder cancer (x 5 years s/p chemo), and diagnosed 8 weeks ago with Parkinson's Disease. Patient presents with complaint of cough and hemoptysis x 2 days. Bilateral pneumonia likely secondary to aspiration Hemoptysis Mild COPD Hypoxia Hypoxemia --01/28 CT shows bilateral pneumonia --continue Zosyn --Quant Gold pending, AFB x 3 pending Hypertension --BP elevated --continue lisinopril Bladder cancer --no acute issues Parkinson's disease --continue carbidopa/levodopa --consult Dr. Andrade pending F/E/N Fluids: PO intake adequate Electrolytes: replete as indicated Nutrition: low sodium diet DVT prophylaxis: subq heparin, oob, ambulation PT evaluation Daily PT Dispo: continues to require inpatient care. Full Code. Visit type - Emergency Visit Emergency Visit: Yes ED Registration Date: 01/27/17 Care time: The patient presented to the Emergency Department on the above date and was hospitalized for further evaluation of their emergent condition. - New Patient This patient is new to me today: No - Critical Care Critical Care patient: No
[2017-01-30] MEDS: LISINOPRIL 10 MG TABLET (FP) PO SCH (10:24)
[2017-01-30] MEDS: HEPARIN NA (PORCINE) 5,000 UNITS/ML 1ML VIAL SQ SCH ×2 (10:24→21:08)
[2017-01-30] MEDS: MULTIVITAMINS (DAILY MVI) TABLET (FP) PO SCH (10:24)
--- NOTE | 2017-01-30 11:22 | CON.PULM ---
Consult Consult Specialty:: PULMONARY Referred by:: NEURO Reason for Consultation:: HYPOXEMIC RESP FAILURE - History of Present Illness Chief Complaint: HEMOPTYSIS/WGT LOSS/FOX History of Present Illness: 81 WHITE MALE LIVES AT HOME WITH PRESENTS TO ER WITH HEMOPTYSIS AND LOWER EXT EDEMA AND SOB ON EXERTION. UPON FURTHER QUESTIONING PATIENT HAS HAD A 30 LBS WGT LOSS IN 6 MONTHS, DENIES FEVERS,CHILLS,NIGHT SWEATS OR SICK CONTACTS. 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 - History Source History Provided By: Patient, Medical Record Limitations to Obtaining History: Clinical Condition - Past Medical History DIRECTOR GIFT: Yes: Parkinson's. No: Alzheimer's Cardio/Vascular: Yes: HTN. No: AFIB Pulmonary: No: COPD, O2 Dependent Gastrointestinal: No: Ascites Hepatobiliary: No: Cirrhosis Renal/: No: Renal Failure Heme/Onc: No: Anemia Infectious Disease: No: AIDS Psych: No: Addictions Endocrine: Yes: Diabetes Mellitus - Past Surgical History Past Surgical History: Yes: Hernia Repair - Alcohol/Substance Use Hx Alcohol Use: No - Smoking History Smoking history: Former smoker Have you smoked in the past 12 months: No - Social History Usual Living Arrangement: With Spouse Place of : [facility] History of Recent Travel: No Home Medications - Allergies Allergies/Adverse Reactions: Allergies Allergy/AdvReac Type Severity Reaction Status Date / Time No Known Allergies Allergy Verified 01/27/17 11:43 - Home Medications Home Medications: Ambulatory Orders Multivitamin [Daily Vitamin Formula] 1 each PO DAILY tablet 11/17/16 Carbidopa/Levodopa [Carbidopa-Levodopa 25-100 Tab] 1 each PO TID tablet Family Disease History - Family Disease History Family History: Unremarkable Review of Systems - Review of Systems Constitutional: denies: Chills, Fever Eyes: reports: No Symptoms HENT: reports: No Symptoms Neck: reports: No Symptoms Cardiovascular: reports: Shortness of Breath Respiratory: reports: Cough, Exercise Intolerance, Hemoptysis, SOB, SOB on Exertion Genitourinary: reports: No Symptoms Breasts: reports: No Symptoms Reported Musculoskeletal: reports: No Symptoms Integumentary: reports: No Symptoms Neurological: reports: Unsteady Gait Endocrine: reports: No Symptoms Physical Exam Vital Sings: Vital Signs Temperature 99 F 01/30/17 06:44 Pulse Rate 95 H 01/30/17 06:44 Respiratory Rate 20 01/30/17 06:44 Blood Pressure 147/72 01/30/17 06:44 O2 Sat by Pulse Oximetry (%) 93 L 01/29/17 21:00 Constitutional: Yes: Cachectic, Pallor, Thin Eyes: Yes: EOM Intact, PERRL HENT: Yes: Atraumatic Neck: Yes: Trachea Midline Cardiovascular: Yes: Tachycardia, S1, S2 Respiratory: Yes: Rales (B/L BASES EXTENDING UP 1/3 LUNG FIELD) ...Inspection: Yes: WNL Gastrointestinal: Yes: Soft Renal/: Yes: WNL Breast(s): Yes: WNL Musculoskeletal: Yes: WNL Extremities: Yes: WNL Edema: LLE: 1+, RLE: 1+ Neurological: Yes: Alert Labs: CBC, BMP 01/30/17 08:20 01/30/17 08:20 ABG Results ABG pH 7.50 (7.35-7.45) H 01/30/17 09:25 ABG pCO2 at Pt Temp 34.4 mmHg (35-45) L 01/30/17 09:25 ABG pO2 at Pt Temp 65.1 mmHg (70-100) L 01/30/17 09:25 ABG HCO3 26.4 meq/L (22-26) H 01/30/17 09:25 ABG O2 Sat (Measured) 93.5 % (90-98.9) 01/30/17 09:25 ABG O2 Content 15.1 % vol (15-22) 01/30/17 09:25 ABG Base Excess 3.7 meq/l (-2-2) H 01/30/17 09:25 REST REVIEWED Imaging - Results Chest X-ray: Image Reviewed Cat Scan: Image Reviewed Problem List - Problems (1) Respiratory failure with hypoxia Code(s): J96.91 - RESPIRATORY FAILURE, UNSPECIFIED WITH HYPOXIA Assessment/Plan HEMOPTYSIS/WEIGHT LOSS/HYPOXEMIA/BILATERAL INTERSTITIAL LUNG DISEASE OF UNKNOWN DURATION AND ETIOLOGY. MAJORITY OF THE LUNG DISEASE IS MIDDLE TO LOWER LUNG SOMERS CLEARLY UNDERLYING NEOPLASM AND AND INFECTIOUS ETIOLOGIES LEAD THE DIFFERENTIAL LIST. OTHER ETIOLOGIES SHOULD ALSO BE CONSIDERED SUCH MEDICATION(BCG CAN CAUSE THIS ) AND MCTD (LESS LIKELY) WILL NEED TO SPEAK WITH REGARDING DURATION OF SYMPTOMS PATIENT IS NOT CLEAR ON THIS. AGREE WITH ISOLATION/SPUTUM COLLECTION/EMPIRIC ANTIBIOTICS PER ID/O2 SUPPLEMENTATION/BRONCHODILATORS NEEDED IDEALLY A VAT WEDGE BX WOULD HELP WITH DIAGNOSIS ONCE TBC IS RULED OUT WILL FOLLOW THANK YOU DR WALLACE FOR SUGGESTING A PULMONARY CONSULT. [place] COLON MD
[2017-01-30] MEDS ORDERED: PT OWN MED DRAWER 7, Y5N ONE (11:26)
[2017-01-30 11:59] LABS: LDH 295 U/L (87-241)
--- NOTE | 2017-01-30 12:39 | CONSULT ---
Admitting History and Physical - Primary Care Physician PCP: Beronica Spann - Admission History of Present Illness: per EMR:"HISTORY OF PRESENT ILLNESS: This is a 72 y/o male with a past medical history of Hypertension (no meds), Parkinsons, Borderline DM ( diet controlled), Bladder Ca (remission). Who presents to the ED from the PMD with productive cough, hemoptysis x 2 days. Patient reports he started having a productive cough with clear sputum, he then reports having 2 episodes of blood tinged sputum. Patient denies night sweats, unintentional weight loss. Patient denies recent exposure to sick contacts or travel. patient denies fever, chills, SOB, dizzinss, CP, AP, N/V/D, constipation , melena, hematochezia, dysuria, hematuria ER course was notable for: (1) Chest Xray- bilateral infiltrates (2) Hypoxia- on arrival Spo2 90% RA (3) AB.5/33.8/62.8/26.8 on 2.5L (4) K: 5.3" describes frequent clearing of throat of mucous, and coughing with eating. Weak cough. Per neuro: " slowly progressive gait dysfunction with Parkinson's disease, started on Leva- Dopa 2 months ago (CR 25/100 TID with meals). He improved after this regarding is gait, no falls, regained ability to climb stairs, gained 3-5 lbs. No nausea or adverse effects. present at bedside and notes dysphagia with coughing after some meals. Now admitted with fever chills, SOB, Bibasilar infiltrates and increasing weakness...... Feed patient between 7-8, 12-1 and 5-6, at peak of L-Dopa dose to improve swallowing." Per Pulmonary: "HEMOPTYSIS/WEIGHT LOSS/HYPOXEMIA/BILATERAL INTERSTITIAL LUNG DISEASE OF UNKNOWN DURATION AND ETIOLOGY. MAJORITY OF THE LUNG DISEASE IS MIDDLE TO LOWER LUNG SOMERS CLEARLY UNDERLYING NEOPLASM AND AND INFECTIOUS ETIOLOGIES LEAD THE DIFFERENTIAL LIST. OTHER ETIOLOGIES SHOULD ALSO BE CONSIDERED SUCH MEDICATION(BCG CAN CAUSE THIS ) AND MCTD (LESS LIKELY) WILL NEED TO SPEAK WITH REGARDING DURATION OF SYMPTOMS PATIENT IS NOT CLEAR ON THIS. AGREE WITH ISOLATION/SPUTUM COLLECTION/EMPIRIC ANTIBIOTICS PER ID/O2 SUPPLEMENTATION/BRONCHODILATORS NEEDED IDEALLY A VAT WEDGE BX WOULD HELP WITH DIAGNOSIS ONCE TBC IS RULED OUT" Pt on airborne precautions- r/o TB Selected Entries 01/28/17 01/28/17 01/28/17 02:39 06:14 15:35 Breakfast Lunch Supper Temperature 98.2 F 98 F 99.1 F 01/28/17 01/29/17 01/29/17 17:31 07:37 10:00 Breakfast 75% Lunch Supper Temperature 99.3 F 98.3 F 98.4 F 01/29/17 01/29/17 01/29/17 14:45 17:04 19:45 Breakfast Lunch 25% Supper 50% Temperature 99 F 01/30/17 01/30/17 06:44 11:57 Breakfast 75% Lunch Supper Temperature 99 F Laboratory Tests 01/30/17 09:25 ABG pH 7.50 H ABG pCO2 at Pt Temp 34.4 L ABG pO2 at Pt Temp 65.1 L ABG HCO3 26.4 H O2 Delivery Device Venti mask Oxygen Flow Rate 50 History Source: Patient, Family Member Limitations to Obtaining History: No Limitations - Past Medical History PROTOHISTORIAN: Yes: Parkinson's. No: Alzheimer's Cardiovascular: Yes: HTN. No: AFIB Pulmonary: No: COPD, O2 Dependent Gastrointestinal: No: Ascites Hepatobiliary: No: Cirrhosis Renal/: No: Renal Failure Heme/Onc: No: Anemia Infectious Disease: No: AIDS Psych: No: Addictions Endocrine: Yes: Diabetes Mellitus - Past Surgical History Past Surgical History: Yes: Hernia Repair - Smoking History Smoking history: Former smoker Have you smoked in the past 12 months: No - Alcohol/Substance Use Hx Alcohol Use: No - Social History History of Recent Travel: No History - Admission Reason For Visit: RULE OUT TB - Diagnostics X-ray: Report Reviewed CT Scan: Report Reviewed - General Mental Status: Alert and Oriented, Awake and Alert, Able to Follow Commands Attention: Intact Ability to Follow Directions: Excellent Head/Neck Control: WFL - Hearing Hearing: Impaired, Both Hearing Aide: Yes With Patient: Yes Speech Evaluation - Communication Primary Language: SERBIAN Communication: Yes: Within Normal Limits Oral Expression Ability: Yes: No Impairment - Speech Production Able to Make Needs Known: Yes: WNL Intelligibility: Yes: WNL - Speech Characteristics Voice Loudness: Normal Voice Pitch: Yes: Mildly High Voice Phonatory-based Quality: Yes: Normal Speech Pattern: Normal Speech Clarity: < 100% Nasal Resonance: Normal Articulation: Yes: Precise Rate of Speech: Intact - Language/Auditory Comprehension Follows: Yes: 2 Stage Simple Commands - Language/Verbal Expression Able to Respond to Simple Queries: Yes: WNL Able to Communicate Wants and Needs: Yes: WNL Functional Communication Status: Yes: WNL - 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 Memory: Yes: WNL Short Term Memory: Yes: WNL - Swallow Evaluation/Bedside Assessment Current Nutritional Intake: Regular, Thin Liquids Dentition: Yes: Dental Appliance Upper, Dental Appliance Lower Facial Movement: Controlled Against Resistance Opening: Normal Against Resistance Closing: Normal Pucker Lips: Normal Smile: Normal Lingual Movement: Normal, Symmetric Lingual Speed of Movement: Normal Lingual Movement Strgth Against Opposition: Normal Lingual Movement Characteristics: Normal Velopharyngeal Movement: Normal Laryngeal Movement: Able to Palpate, Labored,delay initiation Rate of Intake: WFL Bolus Size: WFL Labial Seal: WFL Chewing: WFL Oral Prep Time: WFL A-P Transit: WFL Pocketing: None Timing of Swallow: Delayed Coughing/Throat Clear: Yes (thin 3 oz water test) Recommendations - Speech Evaluation, Impression/Plan Impression: Responsive cough following 3 oz water test. Likely aspirating. Tongue dry, related to o2/medication? - Dysphagia Impressions/Plan Swallowing Skills: Impaired Dysphagia Impressions: Mild Impairment, Suspect Aspiration *Silent aspiration: cannot be R/O at bedside Dysphagia Treatment Plan: Chin Tuck/Down, Safe Rate, OOB for meals, OOB for 1 h. after meals, Other (avoid straws and continuous drinking) Recommendations: Modified Barium Swallow, Other (Humidify o2) - Recommendations Diet Consistency: Dysphagia Whole Liquids: [place] Thick Supplement: Magic Cup, Other (ensure compact if ok with RD)
--- NOTE | 2017-01-30 13:13 | PN ---
Progress Note, Physician History of Present Illness: events note from yesterday patient became hypoxic ventimask had to be used patient currently sitting in chair says he coughed a lot but denies any more hemoptysis patient became hypoxic - Current Medication List Current Medications: Active Medications Acetaminophen (Tylenol -) 650 mg PO Q6H PRN PRN Reason: FEVER OR PAIN Albuterol/Ipratropium (Duoneb -) 1 amp NEB QIDR [facility] Last Admin: 01/30/17 10:50 Dose: 1 amp Carbidopa/Levodopa (Sinemet *Cr* 25/100 -) 1 combo PO 0600,1100,1600 [facility] Last Admin: 01/30/17 11:31 Dose: 1 combo Heparin Sodium (Porcine) (Heparin -) 5,000 unit SQ BID [facility] Last Admin: 01/30/17 10:24 Dose: 5,000 unit Piperacillin Sod/Tazobactam Sod (Zosyn 3.375gm Ivpb (Pre-Docked)) 50 mls @ 100 mls/hr IVPB Q8H-IV [facility] PRN Reason: Protocol Last Admin: 01/30/17 10:24 Dose: 100 mls/hr Lisinopril (Prinivil) 10 mg PO DAILY [facility] Last Admin: 01/30/17 10:24 Dose: 10 mg Multivitamins/Minerals/Vitamin C (Tab-A-Vit -) 1 tab PO DAILY [facility] Last Admin: 01/30/17 10:24 Dose: 1 tab - Objective Vital Signs: Vital Signs Temperature 99 F 01/30/17 06:44 Pulse Rate 92 H 01/30/17 10:45 Respiratory Rate 20 01/30/17 06:44 Blood Pressure 147/72 01/30/17 06:44 O2 Sat by Pulse Oximetry (%) 93 L 01/30/17 10:45 Constitutional: Yes: No Distress, Calm, Thin Neck: Yes: Supple Cardiovascular: Yes: Regular Rate and Rhythm Respiratory: Yes: Poor Air Entry, Rhonchi Gastrointestinal: Yes: Normal Bowel Sounds, Soft Musculoskeletal: Yes: WNL Extremities: Yes: WNL Neurological: Yes: Alert, Oriented Psychiatric: Yes: Alert Labs: CBC, BMP 01/30/17 08:20 01/30/17 08:20 INR, PTT INR 1.01 (0.82-1.09) 01/27/17 12:20 Assessment/Plan parkinsonian diseases hemoptysis r/o tb r/o malignancy r/o pna plan await for sputum cx report blood cx report negative continue abx for now aspiration studies rest as per the team
--- NOTE | 2017-01-30 18:29 | EKG ---
Test Reason : Blood Pressure : / mmHG Vent. Rate : 087 BPM Atrial Rate : 087 BPM P-R Int : 140 ms QRS Dur : 088 ms QT Int : 372 ms P-R-T Axes : 058 039 030 degrees QTc Int : 447 ms POOR DATA QUALITY, INTERPRETATION MAY BE ADVERSELY AFFECTED NORMAL SINUS RHYTHM NO PREVIOUS ECGS AVAILABLE Confirmed by MD BALDERAS MARJORY ([id number]) on 01/30/2017 6:28:52 PM Referred By: DR HARRELL Confirmed By:TRISTON BALDERAS MD
[2017-01-31] MEDS: PIPERACILLIN/TAZOB 3.375 GM 50 ML IVPB SCH ×3 (01:26→17:05)
[2017-01-31] MEDS: ALBUTEROL SO4 2.5/IPRATROPIUM 0.5 INH SOL 3 ML VIAL.NEB. NEB SCH ×4 (06:57→23:25)
[2017-01-31 08:20] LABS: THYROID STIMULATING HORMONE 2.09 uIU/ml (0.358-3.74)
--- NOTE | 2017-01-31 09:13 | PN ---
Physical Exam: SUBJECTIVE: Patient seen and examined seated on edge of bed. No further hemoptysis. Occasional cough. OBJECTIVE: Vital Signs Period Temp Pulse Resp BP Sys/Chowdhury Pulse Ox Last 24 Hr 98.5 F-100.1 F 92-115 20-20 145-151/74-78 93-93 GENERAL: The patient is awake, alert, and fully oriented, in no acute distress. Thin. HEAD: Normal with no signs of trauma. LUNGS: Breath sounds equal, clear to auscultation bilaterally, no wheezes, no crackles, no accessory muscle use. HEART: Regular rate and rhythm, S1, S2 without murmur, rub or gallop. ABDOMEN: Soft, nontender, nondistended, normoactive bowel sounds, no guarding, no rebound EXTREMITIES: 2+ pulses, warm, well-perfused, no edema. NEUROLOGICAL: Cranial nerves II through XII grossly intact. Slightly halting speech pattern. Laboratory Results - last 24 hr 01/30/17 01/30/17 01/30/17 08:20 08:20 09:25 Puncture Site Right radial ABG pH 7.50 H ABG pCO2 at Pt Temp 34.4 L ABG pO2 at Pt Temp 65.1 L ABG HCO3 26.4 H ABG O2 Sat (Measured) 93.5 ABG O2 Content 15.1 ABG Base Excess 3.7 H Christiano Test Positive O2 Delivery Device Venti mask Oxygen Flow Rate 50 Sodium 143 Potassium 3.7 Chloride 105 Carbon Dioxide 30 Anion Gap 8 BUN 17 Creatinine 1.0 Creat Clearance w eGFR > 60 Random Glucose 108 H Lactic Acid 1.4 Calcium 9.3 Magnesium 2.1 Total Bilirubin 0.6 AST 59 H ALT 8 L D Alkaline Phosphatase 132 H LD Total 295 H Total Protein 5.3 L Albumin 2.6 L TSH 01/30/17 01/31/17 11:40 06:30 Puncture Site ABG pH ABG pCO2 at Pt Temp ABG pO2 at Pt Temp ABG HCO3 ABG O2 Sat (Measured) ABG O2 Content ABG Base Excess Christiano Test O2 Delivery Device Oxygen Flow Rate Sodium Potassium Chloride Carbon Dioxide Anion Gap BUN Creatinine Creat Clearance w eGFR Random Glucose Lactic Acid Calcium Magnesium Total Bilirubin AST ALT Alkaline Phosphatase LD Total Cancelled Total Protein Albumin TSH 2.09 D Active Medications Generic Name Dose Route Start Last Admin Trade Name Freq PRN Reason Stop Dose Admin Acetaminophen 650 mg 01/29/17 18:25 01/30/17 21:08 Tylenol - PO 650 mg Q6H PRN Administration FEVER OR PAIN Albuterol/Ipratropium 1 amp 01/30/17 06:45 01/31/17 06:57 Duoneb - NEB 1 amp QIDR [facility] Administration Carbidopa/Levodopa 1 combo 01/30/17 11:00 01/31/17 06:15 Sinemet *Cr* 25/100 - PO 1 combo 0600,1100,1600 [facility] Administration Heparin Sodium (Porcine) 5,000 unit 01/28/17 22:00 01/30/17 21:08 Heparin - SQ 5,000 unit BID [facility] Administration Piperacillin Sod/Tazobactam Sod 50 mls @ 100 mls/hr 01/30/17 02:00 01/31/17 01: 26 Zosyn 3.375gm Ivpb (Pre-Docked) IVPB 100 mls/hr Q8H-IV [facility] Administration Protocol Lisinopril 10 mg 01/29/17 20:00 01/30/17 10:24 Prinivil PO 10 mg DAILY [facility] Administration Multivitamins/Minerals/Vitamin C 1 tab 01/28/17 10:00 01/30/17 10:24 Tab-A-Vit - PO 1 tab DAILY [facility] Administration Recent Imaging 12/01/16 CXR: mild COPD 12/03/16 Echo: mild asymmetric LVH; LV normal; RV normal; BLAE; trace MR 12/09/16 Upper GI series: duodenal diverticulum, otherwise unremarkable 12/13/16 US renal/bladder: unremarkable 12/25/16 MRI brain: no acute process; mild chronic sinusitis 01/27/17 CXR: airspace opacities bilaterally 01/28/17 CT chest: bilateral pneumonia ASSESSMENT/PLAN 81 year-old man with a PMH of HTN, mild COPD, bladder cancer (x 5 years s/p chemo), and diagnosed 8 weeks ago with Parkinson's Disease. Patient presented with complaint of cough and hemoptysis x 2 days. Bilateral pneumonia likely secondary to aspiration Bilateral interstitial lung disease Respiratory failure with hypoxia and hypoxemia Hemoptysis, resolved --01/28 CT shows bilateral pneumonia --poor bedside peakflows; still requiring 50% venti mask to maintain 95% sat --continue Zosyn, duonebs; pulm starting IV steroids today --AFB x 3 negative, off isolation Hypertension --BP elevated --increase lisinopril to 20mg Bladder cancer --no acute issues Parkinson's disease --seen and evaluated by neuro --continue carbidopa/levodopa F/E/N Fluids: PO intake adequate Electrolytes: replete as indicated Nutrition: low sodium diet DVT prophylaxis: subq heparin, oob, ambulation PT evaluation Daily PT Dispo: continues to require inpatient care. Full Code. Visit type - Emergency Visit Emergency Visit: Yes ED Registration Date: 01/27/17 Care time: The patient presented to the Emergency Department on the above date and was hospitalized for further evaluation of their emergent condition. - New Patient This patient is new to me today: No - Critical Care Critical Care patient: No
[2017-01-31] MEDS: MULTIVITAMINS (DAILY MVI) TABLET (FP) PO SCH (10:27)
[2017-01-31] MEDS: LISINOPRIL 10 MG TABLET (FP) PO SCH (10:27)
[2017-01-31] MEDS: HEPARIN NA (PORCINE) 5,000 UNITS/ML 1ML VIAL SQ SCH ×2 (10:27→21:52)
--- NOTE | 2017-01-31 10:35 | PN ---
Progress Note (short form) - Note Progress Note: PULMONARY LOW GRADE TEMP LAST NIGHT AMBULATING IN ROOM ON 02 PALE/ANICTERIC BIBASILAR INSPIRATORY CRACKLES EXTENDING UP 1/3 LUNG SOMERS S1S2 BS+ NO EDEMA LABS/MEDS/NOTES/IMAGES/MICRO REVIEWED AFB SPUTUM NEGATIVE X 3 ISOLATION REMOVED PER PMD BILATERAL INTERSTITIAL INFILTRATES ETIOLOGY? HYPOXEMIC RESP FAILURE HEMOPTYSIS RESOLVED PARKINSONS DISEASE WILL GIVE TRIAL OF STEROIDS HAVE CALLED TO DISCUSS VAT/WEDGE BX (LEFT MESSAGE) HAVE SPOKEN WITH HOSPITALIST HAVE ORDERED HIV/CRP/ESR R ISAIAH BALDWIN Problem List - Problems (1) Respiratory failure with hypoxia Code(s): J96.91 - RESPIRATORY FAILURE, UNSPECIFIED WITH HYPOXIA
[2017-01-31] MEDS ORDERED: PT OWN MED DRAWER 7, Y5N ONE ×3 (11:20→15:24)
[2017-01-31] MEDS: methylPREDNISolone NA SUCC 40 MG/1 ML VIAL IVPB SCH ×3 (11:25→21:52)
[2017-01-31 13:11] LABS: HIV 1 & 2 AB NEGATIVE; HIV 1 AGp24 NEGATIVE
--- NOTE | 2017-01-31 16:20 | PN ---
Progress Note, Physician History of Present Illness: patient still on ventimask still sob patient says that he had hemoptysis once still cough - Current Medication List Current Medications: Active Medications Acetaminophen (Tylenol -) 650 mg PO Q6H PRN PRN Reason: FEVER OR PAIN Last Admin: 01/30/17 21:08 Dose: 650 mg Albuterol/Ipratropium (Duoneb -) 1 amp NEB QIDR [facility] Last Admin: 01/31/17 11:33 Dose: 1 amp Carbidopa/Levodopa (Sinemet *Cr* 25/100 -) 1 combo PO 0600,1100,1600 [facility] Last Admin: 01/31/17 15:32 Dose: 1 combo Heparin Sodium (Porcine) (Heparin -) 5,000 unit SQ BID [facility] Last Admin: 01/31/17 10:27 Dose: 5,000 unit Piperacillin Sod/Tazobactam Sod (Zosyn 3.375gm Ivpb (Pre-Docked)) 50 mls @ 100 mls/hr IVPB Q8H-IV [facility] PRN Reason: Protocol Last Admin: 01/31/17 10:27 Dose: 100 mls/hr Lisinopril (Prinivil) 10 mg PO DAILY [facility] Last Admin: 01/31/17 10:27 Dose: 10 mg Methylprednisolone Sodium Succinate (Solu-Medrol -) 40 mg IVPB Q6H-IV [facility] Last Admin: 01/31/17 15:33 Dose: 40 mg Multivitamins/Minerals/Vitamin C (Tab-A-Vit -) 1 tab PO DAILY [facility] Last Admin: 01/31/17 10:27 Dose: 1 tab - Objective Vital Signs: Vital Signs Temperature 99.6 F 01/31/17 09:00 Pulse Rate 103 H 01/31/17 11:31 Respiratory Rate 20 01/31/17 09:00 Blood Pressure 130/64 01/31/17 09:00 O2 Sat by Pulse Oximetry (%) 95 01/31/17 11:31 Constitutional: Yes: No Distress, Calm Neck: Yes: Supple Cardiovascular: Yes: Regular Rate and Rhythm Respiratory: Yes: Regular, Poor Air Entry, Rhonchi Gastrointestinal: Yes: Normal Bowel Sounds, Soft Musculoskeletal: Yes: WNL Extremities: Yes: WNL Integumentary: Yes: WNL Neurological: Yes: Alert, Oriented Psychiatric: Yes: Alert, Oriented Labs: CBC, BMP 06/30/17 08:20 01/30/17 08:20 INR, PTT INR 1.01 (0.82-1.09) 01/27/17 12:20 Assessment/Plan parkinsonian diseases hemoptysis r/o malignancy pna plan cx report noted conitnue abx if he continues having hemoptsis might need bronch rest as per primary
[2017-01-31] MEDS ORDERED: ACETAMINOPHEN/CAFFEINE/BUTALBITAL 1 TAB PO PRN (18:48)
[2017-01-31] MEDS ORDERED: LISINOPRIL 10 MG TABLET (FP) PO ONE (18:50)
[2017-02-01] MEDS: PIPERACILLIN/TAZOB 3.375 GM 50 ML IVPB SCH ×3 (01:38→17:55)
[2017-02-01] MEDS: methylPREDNISolone NA SUCC 40 MG/1 ML VIAL IVPB SCH ×4 (03:20→21:55)
[2017-02-01] MEDS ORDERED: PT OWN MED DRAWER 7, Y5N ONE ×3 (06:14→15:59)
[2017-02-01] MEDS: ALBUTEROL SO4 2.5/IPRATROPIUM 0.5 INH SOL 3 ML VIAL.NEB. NEB SCH ×4 (07:00→23:30)
--- NOTE | 2017-02-01 10:27 | PN ---
Progress Note (short form) - Note Progress Note: PULMONARY FEELS OVERALL IMPROVED ANICTERIC BIBASILAR INSPIRATORY CRACKLES EXTENDING UP 1/3 LUNG SOMERS S1S2 BS+ NO EDEMA LABS/MEDS/NOTES/IMAGES/MICRO REVIEWED AFB SPUTUM NEGATIVE X 3 ISOLATION REMOVED PER PMD HIV IS NEGATIVE/CRP 7.2 ESR PENDING BILATERAL INTERSTITIAL INFILTRATES ETIOLOGY? HYPOXEMIC RESP FAILURE HEMOPTYSIS RESOLVED PARKINSONS DISEASE TRIAL OF STEROIDS HAVE SPOKEN WITH TO DISCUSS VAT/WEDGE BX HAVE SPOKEN WITH HOSPITALIST CONTINUE CURRENT DOSE STEROIDS TRY TO REDUCE FIO2 REQUIRED R ISAIAH BALDWIN Problem List - Problems (1) Respiratory failure with hypoxia Code(s): J96.91 - RESPIRATORY FAILURE, UNSPECIFIED WITH HYPOXIA
[2017-02-01] MEDS: MULTIVITAMINS (DAILY MVI) TABLET (FP) PO SCH (10:33)
[2017-02-01] MEDS: LISINOPRIL 10 MG TABLET (FP) PO SCH (10:33)
[2017-02-01] MEDS: HEPARIN NA (PORCINE) 5,000 UNITS/ML 1ML VIAL SQ SCH ×2 (10:33→21:55)
--- NOTE | 2017-02-01 12:48 | PN ---
Physical Exam: SUBJECTIVE: Patient seen and examined at bedside. Feels "400 percent" better. Respiratory therapy titrating O2 needs. OBJECTIVE: Vital Signs Period Temp Pulse Resp BP Sys/Chowdhury Pulse Ox Last 24 Hr 97.4 F-97.5 F 98-105 18-20 123-154/56-88 93-98 GENERAL: The patient is awake, alert, and fully oriented, in no acute distress. Thin, frail. HEAD: Normal with no signs of trauma. LUNGS: Breath sounds equal, clear to auscultation bilaterally, no wheezes, no crackles, no accessory muscle use. HEART: Regular rate and rhythm, S1, S2 without murmur, rub or gallop. ABDOMEN: Soft, nontender, nondistended, normoactive bowel sounds, no guarding, no rebound EXTREMITIES: 2+ pulses, warm, well-perfused, no edema. NEUROLOGICAL: Cranial nerves II through XII grossly intact. Slightly halting speech pattern. CBCD WBC 4.7 K/mm3 (4.0-10.0) 01/30/17 08:20 RBC 4.31 M/mm3 (4.00-5.60) 01/30/17 08:20 Hgb 11.5 GM/dL (11.7-16.9) L 01/30/17 08:20 Hct 35.1 % (35.4-49) L 01/30/17 08:20 MCV 81.6 fl (80-96) 01/30/17 08:20 MCHC 32.9 g/dl (32.0-35.9) 01/30/17 08:20 RDW 17.0 % (11.9-15.9) H 01/30/17 08:20 Plt Count 210 K/MM3 (134-434) 01/30/17 08:20 MPV 7.5 fl (7.5-11.1) 01/30/17 08:20 CMP Sodium 143 mmol/L (136-145) 01/30/17 08:20 Potassium 3.7 mmol/L (3.5-5.1) 01/30/17 08:20 Chloride 105 mmol/L (98-107) 01/30/17 08:20 Carbon Dioxide 30 mmol/L (21-32) 01/30/17 08:20 Anion Gap 8 (8-16) 01/30/17 08:20 BUN 17 mg/dL (7-18) 01/30/17 08:20 Creatinine 1.0 mg/dL (0.7-1.3) 01/30/17 08:20 Creat Clearance w eGFR > 60 (>60) 01/30/17 08:20 Calcium 9.3 mg/dL (8.5-10.1) 01/30/17 08:20 Total Bilirubin 0.6 mg/dL (0.2-1.0) 01/30/17 08:20 AST 59 U/L (15-37) H 01/30/17 08:20 ALT 8 U/L (12-78) L D 01/30/17 08:20 Alkaline Phosphatase 132 U/L (45-117) H 01/30/17 08:20 Total Protein 5.3 g/dl (6.4-8.2) L 01/30/17 08:20 Albumin 2.6 g/dl (3.4-5.0) L 01/30/17 08:20 Laboratory Results - last 24 hr 01/31/17 02/01/17 11:05 07:50 ESR 11 HIV 1&2 Antibody Screen Negative HIV P24 Antigen Negative Active Medications Generic Name Dose Route Start Last Admin Trade Name Freq PRN Reason Stop Dose Admin Acetaminophen 650 mg 01/29/17 18:25 01/30/17 21:08 Tylenol - PO 650 mg Q6H PRN Administration FEVER OR PAIN Acetaminophen/Butalbital/Caffeine 1 tablet 01/31/17 18:48 Fioricet - PO Q4H PRN FEVER OR PAIN Albuterol/Ipratropium 1 amp 01/30/17 06:45 02/01/17 11:20 Duoneb - NEB 1 amp QIDR [facility] Administration Carbidopa/Levodopa 1 combo 01/30/17 11:00 02/01/17 11:20 Sinemet *Cr* 25/100 - PO 1 combo 0600,1100,1600 [facility] Administration Heparin Sodium (Porcine) 5,000 unit 01/28/17 22:00 02/01/17 10:33 Heparin - SQ 5,000 unit BID [facility] Administration Piperacillin Sod/Tazobactam Sod 50 mls @ 100 mls/hr 01/30/17 02:00 02/01/17 10: 33 Zosyn 3.375gm Ivpb (Pre-Docked) IVPB 100 mls/hr Q8H-IV [facility] Administration Protocol Lisinopril 20 mg 02/01/17 10:00 02/01/17 10:33 Prinivil PO 20 mg DAILY [facility] Administration Methylprednisolone Sodium Succinate 40 mg 01/31/17 10:45 02/01/17 08:37 Solu-Medrol - IVPB 40 mg Q6H-IV [facility] Administration Multivitamins/Minerals/Vitamin C 1 tab 01/28/17 10:00 02/01/17 10:33 Tab-A-Vit - PO 1 tab DAILY [facility] Administration ASSESSMENT/PLAN Recent Imaging 12/01/16 CXR: mild COPD 12/03/16 Echo: mild asymmetric LVH; LV normal; RV normal; BLAE; trace MR 12/09/16 Upper GI series: duodenal diverticulum, otherwise unremarkable 12/13/16 US renal/bladder: unremarkable 12/25/16 MRI brain: no acute process; mild chronic sinusitis 01/27/17 CXR: airspace opacities bilaterally 01/28/17 CT chest: bilateral pneumonia 01/30/17 Echo: LV normal; RV normal; LAE; mild MR; mild TR ASSESSMENT/PLAN 81 year-old man with a PMH of HTN, mild COPD, bladder cancer (x 5 years s/p chemo), and diagnosed 8 weeks ago with Parkinson's Disease. Patient presented with complaint of cough and hemoptysis x 2 days. Bilateral pneumonia likely secondary to aspiration Bilateral interstitial lung disease Respiratory failure with hypoxia and hypoxemia Hemoptysis, resolved --oxygen requirements much improved today, satting 95% on 3L NC --continue Zosyn, duonebs, IV steroids --AFB x 3 negative, off isolation --CT surgery consult pending, plan is possible VATS wedge biopsy Hypertension --BP elevated --continue lisinopril 20mg Bladder cancer --no acute issues Parkinson's disease --seen and evaluated by neuro --continue carbidopa/levodopa F/E/N Fluids: PO intake adequate Electrolytes: replete as indicated Nutrition: low sodium diet DVT prophylaxis: subq heparin, oob, ambulation PT evaluation Daily PT Dispo: continues to require inpatient care. Full Code. Visit type - Emergency Visit Emergency Visit: Yes ED Registration Date: 01/27/17 Care time: The patient presented to the Emergency Department on the above date and was hospitalized for further evaluation of their emergent condition. - New Patient This patient is new to me today: No - Critical Care Critical Care patient: No
--- NOTE | 2017-02-01 15:27 | PN ---
Progress Note, Physician History of Present Illness: patient says he is much better no cough no hemoptysis - Current Medication List Current Medications: Active Medications Acetaminophen (Tylenol -) 650 mg PO Q6H PRN PRN Reason: FEVER OR PAIN Last Admin: 01/30/17 21:08 Dose: 650 mg Acetaminophen/Butalbital/Caffeine (Fioricet -) 1 tablet PO Q4H PRN PRN Reason: FEVER OR PAIN Albuterol/Ipratropium (Duoneb -) 1 amp NEB QIDR [facility] BEDS AT [facility] Last Admin: 02/01/17 11:20 Dose: 1 amp Carbidopa/Levodopa (Sinemet *Cr* 25/100 -) 1 combo PO 0600,1100,1600 [facility] 234 BEDS AT THE [facility] Last Admin: 02/01/17 11:20 Dose: 1 combo Heparin Sodium (Porcine) (Heparin -) 5,000 unit SQ BID [facility] 234 BEDS AT [facility] Last Admin: 02/01/17 10:33 Dose: 5,000 unit Piperacillin Sod/Tazobactam Sod (Zosyn 3.375gm Ivpb (Pre-Docked)) 50 mls @ 100 mls/hr IVPB Q8H-IV [facility] 234 BEDS AT THE [facility] PRN Reason: Protocol Last Admin: 02/01/17 10:33 Dose: 100 mls/hr Lisinopril (Prinivil) 20 mg PO DAILY [facility] 234 BEDS AT [facility] Last Admin: 02/01/17 10:33 Dose: 20 mg Methylprednisolone Sodium Succinate (Solu-Medrol -) 40 mg IVPB Q6H-IV [facility] 234 BEDS AT [facility] Last Admin: 02/01/17 08:37 Dose: 40 mg Multivitamins/Minerals/Vitamin C (Tab-A-Vit -) 1 tab PO DAILY [facility] 234 BEDS AT [facility] Last Admin: 02/01/17 10:33 Dose: 1 tab - Objective Vital Signs: Vital Signs Temperature 97.4 F L 02/01/17 10:00 Pulse Rate 95 H 02/01/17 14:43 Respiratory Rate 18 02/01/17 10:00 Blood Pressure 123/56 02/01/17 10:00 O2 Sat by Pulse Oximetry (%) 96 02/01/17 14:43 Constitutional: Yes: No Distress, Calm Cardiovascular: Yes: Regular Rate and Rhythm Respiratory: Yes: Regular, On Nasal O2, Rhonchi Gastrointestinal: Yes: Normal Bowel Sounds, Soft Musculoskeletal: Yes: WNL Extremities: Yes: WNL Neurological: Yes: Alert, Oriented Psychiatric: Yes: Alert Labs: CBC, BMP 01/30/17 08:20 01/30/17 08:20 INR, PTT INR 1.01 (0.82-1.09) 01/27/17 12:20 Assessment/Plan parkinsonian diseases hemoptysis r/o malignancy pna plan continue abx continue to monitor incentive melissa rest as per primary
[2017-02-02] MEDS: PIPERACILLIN/TAZOB 3.375 GM 50 ML IVPB SCH ×3 (01:30→18:07)
[2017-02-02] MEDS: methylPREDNISolone NA SUCC 40 MG/1 ML VIAL IVPB SCH ×4 (03:25→21:07)
[2017-02-02] MEDS ORDERED: PT OWN MED DRAWER 7, Y5N ONE ×3 (06:32→15:16)
[2017-02-02] MEDS: ALBUTEROL SO4 2.5/IPRATROPIUM 0.5 INH SOL 3 ML VIAL.NEB. NEB SCH ×4 (06:40→23:09)
[2017-02-02 08:04] LABS: ALBUMIN 2.6 g/dl (3.4-5.0); ALK PHOS 124 U/L (45-117); ANION GAP 6 (8-16); BILIRUBIN,TOTAL 0.3 mg/dL (0.2-1.0); CALCIUM 10.2 mg/dL (8.5-10.1); CO2 30 mmol/L (21-32); CREATININE 1.1 mg/dL (0.7-1.3); GLUCOSE,RANDOM 186 mg/dL (74-106); MAGNESIUM 2.4 mg/dL (1.8-2.4); SGOT/AST 40 U/L (15-37); SGPT/ALT 26 U/L (12-78); TOT PROT 5.7 g/dl (6.4-8.2)
[2017-02-02 08:14] LABS: BASOPHIL 0.1 % (0-2.0); MCH 27.2 pg (25.7-33.7); MCHC 33.2 g/dl (32.0-35.9); NEUTROPHILS 83.5 % (42.8-82.8); PLATELET COUNT 198 K/MM3 (134-434); RDW 17.4 % (11.9-15.9)
[2017-02-02] MEDS: HEPARIN NA (PORCINE) 5,000 UNITS/ML 1ML VIAL SQ SCH ×2 (10:44→22:07)
[2017-02-02] MEDS: LISINOPRIL 10 MG TABLET (FP) PO SCH (10:45)
[2017-02-02] MEDS: MULTIVITAMINS (DAILY MVI) TABLET (FP) PO SCH (10:45)
--- NOTE | 2017-02-02 12:22 | PN ---
Progress Note (short form) - Note Progress Note: PULMONARY FEELS OVERALL IMPROVED O2 REQUIREMENTS IMPROVED SPO2 96% ON 3L/M ANICTERIC BIBASILAR INSPIRATORY CRACKLES EXTENDING UP 1/4 LUNG SOMERS S1S2 BS+ NO EDEMA LABS/MEDS/NOTES/IMAGES/MICRO REVIEWED AFB SPUTUM NEGATIVE X 3 ISOLATION REMOVED PER PMD HIV IS NEGATIVE/CRP 7.2 ESR 11 BILATERAL INTERSTITIAL INFILTRATES ETIOLOGY? HYPOXEMIC RESP FAILURE HEMOPTYSIS RESOLVED PARKINSONS DISEASE TRIAL OF STEROIDS HAVE SPOKEN WITH TO DISCUSS VAT/WEDGE BX HAVE SPOKEN WITH HOSPITALIST CONTINUE CURRENT DOSE STEROIDS WILL FOLLOW [place] COLON MD Problem List - Problems (1) Respiratory failure with hypoxia Code(s): J96.91 - RESPIRATORY FAILURE, UNSPECIFIED WITH HYPOXIA
--- NOTE | 2017-02-02 12:47 | CONSULT ---
Consult - text type - Consultation Consultation Note: Thoracic Surgery Consultation: Reason for consult: hemoptysis, consideration for lung bx;Dx: Interstitial lung dz versus malignancy 81M with Parkinson's, former smoker, p/w jones, hemoptysis, 30lb weight loss and CT showing interstitial dz. Also has h/o bladder cancer. He notes that even prior to admission last week, his exercise tolerance was greater than one flight of stairs but he has been hypoxic in the hospital. CT suggests bilateral pneumonia versus pneumonitis. He appears to be improving per patient (oxygen requirements have improved) and notes but would likely be acceptable risk for biopsy although bronchoscopy with washings may be better first step and possible PET scan as outpatient. At this time, the patient does not want any surgical procedures. Plan is to continue abx and steroids per medical team. I have spent 40 minutes in consultation for this patient including discussion with Dr. Montelongo and Dr. Solano, his nursing staff, and greater than 50% involved counseling and coordination of care for him. Dr. Ayala will also be involved if biopsy ends up being necessary.
--- NOTE | 2017-02-02 13:56 | PN ---
Progress Note, Physician History of Present Illness: patient doing well cough has improved no hemoptysis today - Current Medication List Current Medications: Active Medications Acetaminophen (Tylenol -) 650 mg PO Q6H PRN PRN Reason: FEVER OR PAIN Last Admin: 01/30/17 21:08 Dose: 650 mg Albuterol/Ipratropium (Duoneb -) 1 amp NEB QIDR [facility] Last Admin: 02/02/17 11:24 Dose: 1 amp Carbidopa/Levodopa (Sinemet *Cr* 25/100 -) 1 combo PO 0600,1100,1600 [facility] Last Admin: 02/02/17 10:47 Dose: 1 combo Heparin Sodium (Porcine) (Heparin -) 5,000 unit SQ BID [facility] Last Admin: 02/02/17 10:44 Dose: 5,000 unit Piperacillin Sod/Tazobactam Sod (Zosyn 3.375gm Ivpb (Pre-Docked)) 50 mls @ 100 mls/hr IVPB Q8H-IV [facility] PRN Reason: Protocol Last Admin: 02/02/17 10:45 Dose: 100 mls/hr Lisinopril (Prinivil) 20 mg PO DAILY [facility] Last Admin: 02/02/17 10:45 Dose: 20 mg Methylprednisolone Sodium Succinate (Solu-Medrol -) 40 mg IVPB Q6H-IV [facility] Last Admin: 02/02/17 10:42 Dose: 40 mg Multivitamins/Minerals/Vitamin C (Tab-A-Vit -) 1 tab PO DAILY [facility] Last Admin: 02/02/17 10:45 Dose: 1 tab - Objective Vital Signs: Vital Signs Temperature 97.5 F L 02/02/17 07:03 Pulse Rate 67 02/02/17 10:33 Respiratory Rate 20 02/02/17 07:03 Blood Pressure 144/70 02/02/17 07:03 O2 Sat by Pulse Oximetry (%) 96 02/02/17 10:33 Constitutional: Yes: No Distress, Calm Cardiovascular: Yes: S1, S2 Respiratory: Yes: Regular, On Nasal O2, Poor Air Entry, Rhonchi Gastrointestinal: Yes: Normal Bowel Sounds, Soft Musculoskeletal: Yes: WNL Extremities: Yes: WNL Neurological: Yes: Alert, Oriented Psychiatric: Yes: Alert, Oriented Labs: CBC, BMP 02/02/17 06:00 02/02/17 06:00 INR, PTT INR 1.01 (0.82-1.09) 01/27/17 12:20 Assessment/Plan parkinsonian diseases hemoptysis r/o malignancy pna plan patient needs o2 support desats without oxygen continue abx incentive melissa rest as per primary
--- NOTE | 2017-02-02 15:13 | PN ---
Progress Note (short form) - Note Progress Note: Subjective: The patient was seen and examined at the bedside, he states he is feeling much better today Current Medications Generic Name Dose Route Start Last Admin Trade Name Kelsy PRN Reason Stop Dose Admin Acetaminophen 650 mg 01/29/17 18:25 01/30/17 21:08 Tylenol - PO 650 mg Q6H PRN Administration FEVER OR PAIN Albuterol/Ipratropium 1 amp 01/30/17 06:45 02/02/17 11:24 Duoneb - NEB 1 amp QIDR MARILYN Administration Carbidopa/Levodopa 1 combo 01/30/17 11:00 02/02/17 15:16 Sinemet *Cr* 25/100 - PO 1 combo 0600,1100,1600 MARILYN Administration Heparin Sodium (Porcine) 5,000 unit 01/28/17 22:00 02/02/17 10:44 Heparin - SQ 5,000 unit BID MARILYN Administration Piperacillin Sod/Tazobactam Sod 50 mls @ 100 mls/hr 01/30/17 02:00 02/02/17 10: 45 Zosyn 3.375gm Ivpb (Pre-Docked) IVPB 100 mls/hr Q8H-IV MARILYN Administration Protocol Lisinopril 20 mg 02/01/17 10:00 02/02/17 10:45 Prinivil PO 20 mg DAILY MARILYN Administration Methylprednisolone Sodium Succinate 40 mg 01/31/17 10:45 02/02/17 15:15 Solu-Medrol - IVPB 40 mg Q6H-IV MARILYN Administration Multivitamins/Minerals/Vitamin C 1 tab 01/28/17 10:00 02/02/17 10:45 Tab-A-Vit - PO 1 tab DAILY MARILYN Administration Objective: Vital Signs Period Temp Pulse Resp BP Sys/Chowdhury Pulse Ox Last 24 Hr 97.5 F-98.3 F 64-113 18-20 132-144/62-75 96-96 Physical Exam: General: NAD, A&Ox3 Lungs: B/l crackles Heart: RRR, S1S2 Abd: Soft, non-tender, non-distended. Normoactive bowel sounds Ext: Warm, well-perfused. 2+ DP/PT bilaterally Neuro: CN 2-12 intact CBCD WBC 6.0 K/mm3 (4.0-10.0) 02/02/17 06:00 RBC 4.23 M/mm3 (4.00-5.60) 02/02/17 06:00 Hgb 11.5 GM/dL (11.7-16.9) L 02/02/17 06:00 Hct 34.7 % (35.4-49) L 02/02/17 06:00 MCV 82.0 fl (80-96) 02/02/17 06:00 MCHC 33.2 g/dl (32.0-35.9) 02/02/17 06:00 RDW 17.4 % (11.9-15.9) H 02/02/17 06:00 Plt Count 198 K/MM3 (134-434) 02/02/17 06:00 MPV 8.0 fl (7.5-11.1) 02/02/17 06:00 CMP Sodium 146 mmol/L (136-145) H 02/02/17 06:00 Potassium 4.1 mmol/L (3.5-5.1) 02/02/17 06:00 Chloride 110 mmol/L (98-107) H 02/02/17 06:00 Carbon Dioxide 30 mmol/L (21-32) 02/02/17 06:00 Anion Gap 6 (8-16) L 02/02/17 06:00 BUN 41 mg/dL (7-18) H D 02/02/17 06:00 Creatinine 1.1 mg/dL (0.7-1.3) 02/02/17 06:00 Creat Clearance w eGFR > 60 (>60) 02/02/17 06:00 Random Glucose 186 mg/dL (74-106) H D 02/02/17 06:00 Calcium 10.2 mg/dL (8.5-10.1) H 02/02/17 06:00 Total Bilirubin 0.3 mg/dL (0.2-1.0) D 02/02/17 06:00 AST 40 U/L (15-37) H D 02/02/17 06:00 ALT 26 U/L (12-78) D 02/02/17 06:00 Alkaline Phosphatase 124 U/L (45-117) H 02/02/17 06:00 Total Protein 5.7 g/dl (6.4-8.2) L 02/02/17 06:00 Albumin 2.6 g/dl (3.4-5.0) L 02/02/17 06:00 CARDIAC ENZYMES Creatine Kinase 69 IU/L (38-174) 01/27/17 12:20 Troponin I < 0.03 ng/ml (0.03-0.50) L 01/27/17 12:20 Microbiology 01/30/17 06:00 Sputum - Expectorated AFB Smear Concentration - Preliminary 01/30/17 06:00 Sputum - Expectorated Direct Acid Fast Bacilli Smear - Final 01/30/17 06:00 Sputum - Expectorated Mycobacterial Culture - Preliminary 01/28/17 17:20 Blood - Peripheral Venous TB Test (QFT) (RADHA) - Final 01/29/17 06:20 Sputum - Aerosol Induced AFB Smear Concentration - Final 01/29/17 06:20 Sputum - Aerosol Induced Direct Acid Fast Bacilli Smear - Final 01/29/17 06:20 Sputum - Aerosol Induced Mycobacterial Culture - Preliminary 01/27/17 14:50 Blood - Peripheral Venous Blood Culture - Final NO GROWTH AFTER 5 DAYS INCUBATION 01/27/17 14:50 Blood - Peripheral Venous Blood Culture - Final NO GROWTH AFTER 5 DAYS INCUBATION 01/28/17 11:08 Sputum - Expectorated Gram Stain - Final 01/28/17 11:08 Sputum - Expectorated Sputum Culture - Final NORMAL RESPIRATORY GIRISH 01/29/17 15:00 Sputum - Aerosol Induced Direct Acid Fast Bacilli Smear - Final 01/28/17 11:08 Urine For Antigen Detection Legionella Antigen - Final Assessment: This is a 81 year old male with PMHx of HTN, copd, bladder cancer (s /p chemo), diagnosed 8 weeks ago with Parkinson's Disease who presented to the ED with cough and hemoptysis. Plan: 1) Pulmonary: Bilateral interstitial infiltrates, hypoxemic respiratory failure - O2 via nc prn - Continue Solu-medrol 40mg IVPB q6h - Duonebs qid - Continue Zosyn - Per CT surgery: bronchoscpoy with washings and possible PET as first steps - Patient does not want any surgical procedures - Awaiting updated pulmonary plan for possible bronch - Appreciate ID consult - Appreciate CT surgery consult - Appreciate pulmonary consult Hemoptysis - Resolved - AFB x3 negative 2) Cardiology: HTN - Continue Lisinopril 3) Neuro: Newly diagnosed Parkinson's disease - Continue Sinemet 4) Oncology: Bladder cancer - No current issues 5) F/E/N: - Dysphagia whole - Magic cup tid - Monitor electrolytes - Hypercalcemia: start IV fluids 6) Prophylaxis: - OOB ambulating - Heparin 5,000u sq bid 7) Dispo: - Requires continued inpatient care CODE STATUS: FULL CODE Visit type - Emergency Visit Emergency Visit: Yes ED Registration Date: 01/27/17 Care time: The patient presented to the Emergency Department on the above date and was hospitalized for further evaluation of their emergent condition. - New Patient This patient is new to me today: Yes Date on this admission: 02/02/17 - Critical Care Critical Care patient: No
[2017-02-02] MEDS ORDERED: SODIUM CHLORIDE 1,000 ML IV SCH (17:30)
--- NOTE | 2017-02-02 18:41 | PN ---
Progress Note, CASTING TRUCKER - Note Progress Note: Chart review completed. CASTING TRUCKER met with pt to review MBS procedure and review compensatory strategies given from eval by CASTING TRUCKER Jessica. Oral motor examination revealed adequate ROM and strength. Vocal quality is judged to be slightly weak and breathy. Air protection / volitional cough is also reduced. Pt is agreeable to videofluoroscopy.
[2017-02-03] MEDS: PIPERACILLIN/TAZOB 3.375 GM 50 ML IVPB SCH ×3 (02:09→18:01)
[2017-02-03] MEDS: methylPREDNISolone NA SUCC 40 MG/1 ML VIAL IVPB SCH ×4 (03:09→22:06)
[2017-02-03] MEDS: ALBUTEROL SO4 2.5/IPRATROPIUM 0.5 INH SOL 3 ML VIAL.NEB. NEB SCH ×4 (06:07→23:00)
[2017-02-03] MEDS ORDERED: PT OWN MED DRAWER 7, Y5N ONE ×3 (06:10→15:23)
[2017-02-03 08:12] LABS: BASOPHIL 0.1 % (0-2.0); EOSINOPHIL 0.1 % (0-4.5); MCHC 32.5 g/dl (32.0-35.9); MEAN CELL VOLUME 82.8 fl (80-96); MEAN PLT VOLUME 7.9 fl (7.5-11.1); PLATELET COUNT 213 K/MM3 (134-434); RDW 17.8 % (11.9-15.9); WHITE BLOOD COUNT 4.9 K/mm3 (4.0-10.0)
[2017-02-03 08:36] LABS: ALBUMIN 2.9 g/dl (3.4-5.0); ALK PHOS 118 U/L (45-117); ANION GAP 8 (8-16); BILIRUBIN,TOTAL 0.6 mg/dL (0.2-1.0); CALCIUM 9.7 mg/dL (8.5-10.1); CO2 30 mmol/L (21-32); CREATININE 1.1 mg/dL (0.7-1.3); GLUCOSE,RANDOM 125 mg/dL (74-106); SGOT/AST 44 U/L (15-37); SGPT/ALT 43 U/L (12-78); TOT PROT 5.6 g/dl (6.4-8.2)
--- NOTE | 2017-02-03 09:35 | PN ---
Progress Note (short form) - Note Progress Note: PULMONARY FEELS OVERALL IMPROVED O2 REQUIREMENTS IMPROVED SPO2 96% ON 3L/M ANICTERIC BIBASILAR INSPIRATORY CRACKLES EXTENDING UP 1/4 LUNG SOMERS S1S2 BS+ NO EDEMA LABS/MEDS/NOTES/IMAGES/MICRO REVIEWED AFB SPUTUM NEGATIVE X 3 ISOLATION REMOVED PER PMD HIV IS NEGATIVE/CRP 7.2 ESR 11 BILATERAL INTERSTITIAL INFILTRATES ETIOLOGY? HYPOXEMIC RESP FAILURE HEMOPTYSIS RESOLVED PARKINSONS DISEASE WOULD CHANGE STEROIDS TO 40MG PREDNISONE DAILY IN AM DETERMINE O2 REQUIREMENTS FOR HOME REFUSES BRONCHOSCOPY WILL FOLLOW OUTPATIENT WILL FOLLOW [place] COLON MD Problem List - Problems (1) Respiratory failure with hypoxia Code(s): J96.91 - RESPIRATORY FAILURE, UNSPECIFIED WITH HYPOXIA
[2017-02-03] MEDS: HEPARIN NA (PORCINE) 5,000 UNITS/ML 1ML VIAL SQ SCH ×2 (10:31→22:07)
[2017-02-03] MEDS: LISINOPRIL 10 MG TABLET (FP) PO SCH (10:31)
[2017-02-03] MEDS: MULTIVITAMINS (DAILY MVI) TABLET (FP) PO SCH (10:32)
--- NOTE | 2017-02-03 11:04 | PN ---
Progress Note, Physician History of Present Illness: stable no cough - Current Medication List Current Medications: Active Medications Acetaminophen (Tylenol -) 650 mg PO Q6H PRN PRN Reason: FEVER OR PAIN Last Admin: 01/30/17 21:08 Dose: 650 mg Albuterol/Ipratropium (Duoneb -) 1 amp NEB QIDR [facility] Last Admin: 02/03/17 06:07 Dose: 1 amp Carbidopa/Levodopa (Sinemet *Cr* 25/100 -) 1 combo PO 0600,1100,1600 [facility] Last Admin: 02/03/17 10:32 Dose: 1 combo Heparin Sodium (Porcine) (Heparin -) 5,000 unit SQ BID [facility] Last Admin: 02/03/17 10:31 Dose: 5,000 unit Piperacillin Sod/Tazobactam Sod (Zosyn 3.375gm Ivpb (Pre-Docked)) 50 mls @ 100 mls/hr IVPB Q8H-IV MARILYN PRN Reason: Protocol Last Admin: 02/03/17 10:32 Dose: 100 mls/hr Lisinopril (Prinivil) 20 mg PO DAILY [facility] Last Admin: 02/03/17 10:31 Dose: 20 mg Methylprednisolone Sodium Succinate (Solu-Medrol -) 40 mg IVPB Q6H-IV [facility] Last Admin: 02/03/17 10:30 Dose: 40 mg Multivitamins/Minerals/Vitamin C (Tab-A-Vit -) 1 tab PO DAILY [facility] Last Admin: 02/03/17 10:32 Dose: 1 tab - Objective Vital Signs: Vital Signs Temperature 97.3 F L 02/03/17 05:52 Pulse Rate 79 02/03/17 05:52 Respiratory Rate 20 02/03/17 05:52 Blood Pressure 153/78 02/03/17 05:52 O2 Sat by Pulse Oximetry (%) 97 02/02/17 21:00 Constitutional: Yes: No Distress, Calm Respiratory: Yes: Regular, On Nasal O2, Poor Air Entry Gastrointestinal: Yes: Normal Bowel Sounds, Soft Musculoskeletal: Yes: WNL Extremities: Yes: WNL Neurological: Yes: Alert, Oriented Psychiatric: Yes: Alert, Oriented Labs: CBC, BMP 02/03/17 06:10 02/03/17 06:10 INR, PTT INR 1.01 (0.82-1.09) 01/27/17 12:20 Assessment/Plan parkinsonian diseases hemoptysis r/o malignancy pna plan continue abx continue to monitor incentive melissa rest as per primary
--- NOTE | 2017-02-03 13:55 | PN ---
Progress Note (short form) - Note Progress Note: Subjective: The patient was seen and examined at the bedside, he states he is feeling much better today He is refusing broncoscopy Can be switched to po prednisone tomorrow Current Medications Generic Name Dose Route Start Last Admin Trade Name Kelsy PRN Reason Stop Dose Admin Acetaminophen 650 mg 01/29/17 18:25 01/30/17 21:08 Tylenol - PO 650 mg Q6H PRN Administration FEVER OR PAIN Albuterol/Ipratropium 1 amp 01/30/17 06:45 02/03/17 11:20 Duoneb - NEB 1 amp QIDR MARILYN Administration Carbidopa/Levodopa 1 combo 01/30/17 11:00 02/03/17 10:32 Sinemet *Cr* 25/100 - PO 1 combo 0600,1100,1600 MARILYN Administration Heparin Sodium (Porcine) 5,000 unit 01/28/17 22:00 02/03/17 10:31 Heparin - SQ 5,000 unit BID MARILYN Administration Piperacillin Sod/Tazobactam Sod 50 mls @ 100 mls/hr 01/30/17 02:00 02/03/17 10: 32 Zosyn 3.375gm Ivpb (Pre-Docked) IVPB 100 mls/hr Q8H-IV MARILYN Administration Protocol Lisinopril 20 mg 02/01/17 10:00 02/03/17 10:31 Prinivil PO 20 mg DAILY MARILYN Administration Methylprednisolone Sodium Succinate 40 mg 01/31/17 10:45 02/03/17 10:30 Solu-Medrol - IVPB 40 mg Q6H-IV MARILYN Administration Multivitamins/Minerals/Vitamin C 1 tab 01/28/17 10:00 02/03/17 10:32 Tab-A-Vit - PO 1 tab DAILY MARILYN Administration Objective: Vital Signs Period Temp Pulse Resp BP Sys/Chowdhury Pulse Ox Last 24 Hr 97.3 F-98.3 F 79-114 20-20 144-153/62-89 90-98 Physical Exam: General: NAD, A&Ox3 Lungs: B/l crackles Heart: RRR, S1S2 Abd: Soft, non-tender, non-distended. Normoactive bowel sounds Ext: Warm, well-perfused. 2+ DP/PT bilaterally Neuro: CN 2-12 intact CBCD WBC 4.9 K/mm3 (4.0-10.0) 02/03/17 06:10 RBC 4.46 M/mm3 (4.00-5.60) 02/03/17 06:10 Hgb 12.0 GM/dL (11.7-16.9) 02/03/17 06:10 Hct 36.9 % (35.4-49) 02/03/17 06:10 MCV 82.8 fl (80-96) 02/03/17 06:10 MCHC 32.5 g/dl (32.0-35.9) 02/03/17 06:10 RDW 17.8 % (11.9-15.9) H 02/03/17 06:10 Plt Count 213 K/MM3 (134-434) 02/03/17 06:10 MPV 7.9 fl (7.5-11.1) 02/03/17 06:10 CMP Sodium 147 mmol/L (136-145) H 02/03/17 06:10 Potassium 4.1 mmol/L (3.5-5.1) 02/03/17 06:10 Chloride 109 mmol/L (98-107) H 02/03/17 06:10 Carbon Dioxide 30 mmol/L (21-32) 02/03/17 06:10 Anion Gap 8 (8-16) 02/03/17 06:10 BUN 43 mg/dL (7-18) H 02/03/17 06:10 Creatinine 1.1 mg/dL (0.7-1.3) 02/03/17 06:10 Creat Clearance w eGFR > 60 (>60) 02/03/17 06:10 Random Glucose 125 mg/dL (74-106) H D 02/03/17 06:10 Calcium 9.7 mg/dL (8.5-10.1) 02/03/17 06:10 Total Bilirubin 0.6 mg/dL (0.2-1.0) D 02/03/17 06:10 AST 44 U/L (15-37) H 02/03/17 06:10 ALT 43 U/L (12-78) D 02/03/17 06:10 Alkaline Phosphatase 118 U/L (45-117) H 02/03/17 06:10 Total Protein 5.6 g/dl (6.4-8.2) L 02/03/17 06:10 Albumin 2.9 g/dl (3.4-5.0) L 02/03/17 06:10 CARDIAC ENZYMES Creatine Kinase 69 IU/L (38-174) 01/27/17 12:20 Troponin I < 0.03 ng/ml (0.03-0.50) L 01/27/17 12:20 Microbiology 01/30/17 06:00 Sputum - Expectorated AFB Smear Concentration - Final 01/30/17 06:00 Sputum - Expectorated Direct Acid Fast Bacilli Smear - Final 01/30/17 06:00 Sputum - Expectorated Mycobacterial Culture - Preliminary 01/28/17 17:20 Blood - Peripheral Venous TB Test (QFT) (RADHA) - Final 01/29/17 06:20 Sputum - Aerosol Induced AFB Smear Concentration - Final 01/29/17 06:20 Sputum - Aerosol Induced Direct Acid Fast Bacilli Smear - Final 01/29/17 06:20 Sputum - Aerosol Induced Mycobacterial Culture - Preliminary 01/27/17 14:50 Blood - Peripheral Venous Blood Culture - Final NO GROWTH AFTER 5 DAYS INCUBATION 01/27/17 14:50 Blood - Peripheral Venous Blood Culture - Final NO GROWTH AFTER 5 DAYS INCUBATION 01/28/17 11:08 Sputum - Expectorated Gram Stain - Final 01/28/17 11:08 Sputum - Expectorated Sputum Culture - Final NORMAL RESPIRATORY GIRISH 01/29/17 15:00 Sputum - Aerosol Induced Direct Acid Fast Bacilli Smear - Final 01/28/17 11:08 Urine For Antigen Detection Legionella Antigen - Final Assessment: This is a 81 year old male with PMHx of HTN, copd, bladder cancer (s /p chemo), diagnosed 8 weeks ago with Parkinson's Disease who presented to the ED with cough and hemoptysis. Plan: 1) Pulmonary: Bilateral interstitial infiltrates, hypoxemic respiratory failure - O2 via nc prn, will need home O2 per pre/post O2 - Continue Solu-medrol 40mg IVPB q6h, transition to po tomorrow per pulmonary - Duonebs qid - Continue Zosyn - Per CT surgery: bronchoscpoy with washings and possible PET as first steps - Patient does not want any surgical procedures including bronch - Appreciate ID consult - Appreciate CT surgery consult - Appreciate pulmonary consult Hemoptysis - Resolved - AFB x3 negative 2) Cardiology: HTN - Continue Lisinopril 3) Neuro: Newly diagnosed Parkinson's disease - Continue Sinemet 4) Oncology: Bladder cancer - No current issues 5) F/E/N: - Dysphagia whole - Magic cup tid - Monitor electrolytes - Hypercalcemia: improving 6) Prophylaxis: - OOB ambulating - Heparin 5,000u sq bid 7) Dispo: - Requires continued inpatient care CODE STATUS: FULL CODE Visit type - Emergency Visit Emergency Visit: Yes ED Registration Date: 01/27/17 Care time: The patient presented to the Emergency Department on the above date and was hospitalized for further evaluation of their emergent condition. - New Patient This patient is new to me today: No - Critical Care Critical Care patient: No
[2017-02-04] MEDS: PIPERACILLIN/TAZOB 3.375 GM 50 ML IVPB SCH ×2 (01:22→11:21)
[2017-02-04] MEDS: methylPREDNISolone NA SUCC 40 MG/1 ML VIAL IVPB SCH ×2 (02:50→11:12)
[2017-02-04 06:27] VITALS: TEMP 97.5
[2017-02-04] MEDS: ALBUTEROL SO4 2.5/IPRATROPIUM 0.5 INH SOL 3 ML VIAL.NEB. NEB SCH (07:18)
[2017-02-04 08:11] LABS: ALBUMIN 2.8 g/dl (3.4-5.0); ANION GAP 7 (8-16); CALCIUM 9.9 mg/dL (8.5-10.1); CO2 32 mmol/L (21-32); GLUCOSE,RANDOM 239 mg/dL (74-106)
[2017-02-04 08:14] LABS: ALK PHOS 122 U/L (45-117); BILIRUBIN,TOTAL 0.4 mg/dL (0.2-1.0); CREATININE 1.1 mg/dL (0.7-1.3); SGOT/AST 32 U/L (15-37); SGPT/ALT 53 U/L (12-78); TOT PROT 5.8 g/dl (6.4-8.2)
--- NOTE | 2017-02-04 09:35 | PN ---
Progress Note (short form) - Note Progress Note: Subjective: The patient was seen and examined at the bedside, he states he is feeling much better today Pre/post O2 with spo2 88%, discussed with social work to arrange home o2 Current Medications Generic Name Dose Route Start Last Admin Trade Name Kelsy PRN Reason Stop Dose Admin Acetaminophen 650 mg 01/29/17 18:25 01/30/17 21:08 Tylenol - PO 650 mg Q6H PRN Administration FEVER OR PAIN Carbidopa/Levodopa 1 combo 01/30/17 11:00 02/04/17 06:50 Sinemet *Cr* 25/100 - PO 1 combo 0600,1100,1600 MARILYN Administration Heparin Sodium (Porcine) 5,000 unit 01/28/17 22:00 02/03/17 22:07 Heparin - SQ 5,000 unit BID MARILYN Administration Piperacillin Sod/Tazobactam Sod 50 mls @ 100 mls/hr 01/30/17 02:00 02/04/17 01: 22 Zosyn 3.375gm Ivpb (Pre-Docked) IVPB 100 mls/hr Q8H-IV MARILYN Administration Protocol Lisinopril 20 mg 02/01/17 10:00 02/03/17 10:31 Prinivil PO 20 mg DAILY MARILYN Administration Multivitamins/Minerals/Vitamin C 1 tab 01/28/17 10:00 02/03/17 10:32 Tab-A-Vit - PO 1 tab DAILY MARILYN Administration Prednisone 40 mg 02/04/17 10:00 Deltasone - PO DAILY MARILYN Objective: Vital Signs Period Temp Pulse Resp BP Sys/Chowdhury Pulse Ox Last 24 Hr 97.5 F-98.5 F 70-114 18-20 141-164/70-82 90-98 Physical Exam: General: NAD, A&Ox3 Lungs: B/l crackles Heart: RRR, S1S2 Abd: Soft, non-tender, non-distended. Normoactive bowel sounds Ext: Warm, well-perfused. 2+ DP/PT bilaterally Neuro: CN 2-12 intact CBCD WBC 4.9 K/mm3 (4.0-10.0) 02/03/17 06:10 RBC 4.46 M/mm3 (4.00-5.60) 02/03/17 06:10 Hgb 12.0 GM/dL (11.7-16.9) 02/03/17 06:10 Hct 36.9 % (35.4-49) 02/03/17 06:10 MCV 82.8 fl (80-96) 02/03/17 06:10 MCHC 32.5 g/dl (32.0-35.9) 02/03/17 06:10 RDW 17.8 % (11.9-15.9) H 02/03/17 06:10 Plt Count 213 K/MM3 (134-434) 02/03/17 06:10 MPV 7.9 fl (7.5-11.1) 02/03/17 06:10 CMP Sodium 146 mmol/L (136-145) H 02/04/17 06:10 Potassium 4.1 mmol/L (3.5-5.1) 02/04/17 06:10 Chloride 107 mmol/L (98-107) 02/04/17 06:10 Carbon Dioxide 32 mmol/L (21-32) 02/04/17 06:10 Anion Gap 7 (8-16) L 02/04/17 06:10 BUN 41 mg/dL (7-18) H 02/04/17 06:10 Creatinine 1.1 mg/dL (0.7-1.3) 02/04/17 06:10 Creat Clearance w eGFR > 60 (>60) 02/04/17 06:10 Random Glucose 239 mg/dL (74-106) H D 02/04/17 06:10 Calcium 9.9 mg/dL (8.5-10.1) 02/04/17 06:10 Total Bilirubin 0.4 mg/dL (0.2-1.0) D 02/04/17 06:10 AST 32 U/L (15-37) D 02/04/17 06:10 ALT 53 U/L (12-78) D 02/04/17 06:10 Alkaline Phosphatase 122 U/L (45-117) H 02/04/17 06:10 Total Protein 5.8 g/dl (6.4-8.2) L 02/04/17 06:10 Albumin 2.8 g/dl (3.4-5.0) L 02/04/17 06:10 CARDIAC ENZYMES Creatine Kinase 69 IU/L (38-174) 01/27/17 12:20 Troponin I < 0.03 ng/ml (0.03-0.50) L 01/27/17 12:20 Microbiology 01/30/17 06:00 Sputum - Expectorated AFB Smear Concentration - Final 01/30/17 06:00 Sputum - Expectorated Direct Acid Fast Bacilli Smear - Final 01/30/17 06:00 Sputum - Expectorated Mycobacterial Culture - Preliminary 01/28/17 17:20 Blood - Peripheral Venous TB Test (QFT) (RADHA) - Final 01/29/17 06:20 Sputum - Aerosol Induced AFB Smear Concentration - Final 01/29/17 06:20 Sputum - Aerosol Induced Direct Acid Fast Bacilli Smear - Final 01/29/17 06:20 Sputum - Aerosol Induced Mycobacterial Culture - Preliminary 01/27/17 14:50 Blood - Peripheral Venous Blood Culture - Final NO GROWTH AFTER 5 DAYS INCUBATION 01/27/17 14:50 Blood - Peripheral Venous Blood Culture - Final NO GROWTH AFTER 5 DAYS INCUBATION 01/28/17 11:08 Sputum - Expectorated Gram Stain - Final 01/28/17 11:08 Sputum - Expectorated Sputum Culture - Final NORMAL RESPIRATORY GIRISH 01/29/17 15:00 Sputum - Aerosol Induced Direct Acid Fast Bacilli Smear - Final 01/28/17 11:08 Urine For Antigen Detection Legionella Antigen - Final Assessment: This is a 81 year old male with PMHx of HTN, copd, bladder cancer (s /p chemo), diagnosed 8 weeks ago with Parkinson's Disease who presented to the ED with cough and hemoptysis. Plan: 1) Pulmonary: Bilateral interstitial infiltrates, hypoxemic respiratory failure - O2 via nc prn, will need home O2 per pre/post O2 - Transition to prednisone 40mg daily - Duonebs qid - Continue Zosyn, awaiting ID recommendations for po - Per CT surgery: bronchoscpoy with washings and possible PET as first steps - Patient does not want any surgical procedures including bronch - Appreciate ID consult - Appreciate CT surgery consult - Appreciate pulmonary consult Hemoptysis - Resolved - AFB x3 negative 2) Cardiology: HTN - Continue Lisinopril 3) Neuro: Newly diagnosed Parkinson's disease - Continue Sinemet 4) Oncology: Bladder cancer - No current issues 5) F/E/N: - Dysphagia whole - Magic cup tid - Monitor electrolytes - Hypercalcemia: improving 6) Prophylaxis: - OOB ambulating - Heparin 5,000u sq bid 7) Dispo: - Requires continued inpatient care CODE STATUS: FULL CODE Visit type - Emergency Visit Emergency Visit: Yes ED Registration Date: 01/27/17 Care time: The patient presented to the Emergency Department on the above date and was hospitalized for further evaluation of their emergent condition. - New Patient This patient is new to me today: No - Critical Care Critical Care patient: No
[2017-02-04] MEDS ORDERED: predniSONE 20 MG TABLET (UD) PO SCH (10:00)
[2017-02-04 10:09] VITALS: BP 148/77
--- NOTE | 2017-02-04 10:57 | PN ---
Progress Note (short form) - Note Progress Note: PULMONARY FEELS OVERALL IMPROVED O2 REQUIREMENTS IMPROVED SPO2 96% ON 3L/M ANICTERIC BIBASILAR INSPIRATORY CRACKLES S1S2 BS+ NO EDEMA LABS/MEDS/NOTES/IMAGES/MICRO REVIEWED AFB SPUTUM NEGATIVE X 3 ISOLATION REMOVED PER PMD HIV IS NEGATIVE/CRP 7.2 ESR 11 BILATERAL INTERSTITIAL INFILTRATES ETIOLOGY? HYPOXEMIC RESP FAILURE HEMOPTYSIS RESOLVED PARKINSONS DISEASE 40MG PREDNISONE DAILY TO BE TAPERED SLOWLY O2 FOR HOME REFUSES BRONCHOSCOPY WILL FOLLOW OUTPATIENT NEEDS REPEAT CT CHEST OUTPATIENT WILL FOLLOW [place] COLON MD Problem List - Problems (1) Respiratory failure with hypoxia Code(s): J96.91 - RESPIRATORY FAILURE, UNSPECIFIED WITH HYPOXIA
[2017-02-04] MEDS: LISINOPRIL 10 MG TABLET (FP) PO SCH (11:11)
[2017-02-04] MEDS: HEPARIN NA (PORCINE) 5,000 UNITS/ML 1ML VIAL SQ SCH (11:11)
[2017-02-04] MEDS: MULTIVITAMINS (DAILY MVI) TABLET (FP) PO SCH (11:12)
[2017-02-04] MEDS ORDERED: PT OWN MED DRAWER 7, Y5N ONE (11:19)
[2017-02-04] MEDS: PIPERACILLIN/TAZOB 3.375 GM 3.375 GM in DEXTROSE 5%-WATER - 50 ML IVPB SCH ×2 (11:21→18:14)
[2017-02-04 11:56] VITALS: PULSE 77
--- NOTE | 2017-02-04 14:26 | PN ---
Progress Note, SAWMILL TALLY CLERK - Note Progress Note: Pt says he is "thrilled" and "loves" his thickened liquids, feeling he is swallowing much better, and no longer coughing.He reports improved ability to take medication as well. Selected Entries 02/03/17 02/03/17 02/03/17 05:52 09:42 12:59 Breakfast 100% Lunch 75% Supper Temperature 97.3 F L 02/03/17 02/03/17 02/03/17 14:48 17:22 19:54 Breakfast Lunch Supper 50% Temperature 97.7 F 97.7 F 02/03/17 02/04/17 02/04/17 23:00 05:00 06:25 Breakfast Lunch Supper Temperature 97.6 F 98.5 F 97.5 F L Laboratory Tests 02/02/17 02/03/17 06:00 06:10 WBC 6.0 4.9 REC: RD consult regarding obtaining nectar thick liquids for at home use. Home caere swallowing therapy Repeat MBS as out pt, once improved, to upgrade diet safely.
--- NOTE | 2017-02-04 14:51 | PN ---
Progress Note, Physician History of Present Illness: patient doing well no cough no hempotysis - Current Medication List Current Medications: Active Medications Acetaminophen (Tylenol -) 650 mg PO Q6H PRN PRN Reason: FEVER OR PAIN Last Admin: 01/30/17 21:08 Dose: 650 mg Carbidopa/Levodopa (Sinemet *Cr* 25/100 -) 1 combo PO 0600,1100,1600 [facility] Last Admin: 02/04/17 11:20 Dose: 1 combo Heparin Sodium (Porcine) (Heparin -) 5,000 unit SQ BID [facility] Last Admin: 02/04/17 11:11 Dose: 5,000 unit Piperacillin Sod/Tazobactam (Sod 3.375 gm/ Dextrose) 50 mls @ 100 mls/hr IVPB Q8H-IV MARILYN PRN Reason: Protocol Last Admin: 02/04/17 11:21 Dose: 100 mls/hr Lisinopril (Prinivil) 20 mg PO DAILY [facility] Last Admin: 02/04/17 11:11 Dose: 20 mg Multivitamins/Minerals/Vitamin C (Tab-A-Vit -) 1 tab PO DAILY [facility] Last Admin: 02/04/17 11:12 Dose: 1 tab Prednisone (Deltasone -) 40 mg PO DAILY [facility] Last Admin: 02/04/17 11:12 Dose: 40 mg - Objective Vital Signs: Vital Signs Temperature 97.5 F L 02/04/17 06:25 Pulse Rate 77 02/04/17 11:41 Respiratory Rate 20 02/04/17 10:00 Blood Pressure 148/77 02/04/17 10:00 O2 Sat by Pulse Oximetry (%) 97 02/04/17 11:41 Constitutional: Yes: No Distress, Calm Neck: Yes: Supple Cardiovascular: Yes: S1, S2 Respiratory: Yes: On Nasal O2, Poor Air Entry, Other Gastrointestinal: Yes: Normal Bowel Sounds, Soft Musculoskeletal: Yes: WNL Extremities: Yes: WNL Neurological: Yes: Alert, Oriented Psychiatric: Yes: Alert, Oriented Labs: CBC, BMP 02/03/17 06:10 02/04/17 06:10 INR, PTT INR 1.01 (0.82-1.09) 01/27/17 12:20 Assessment/Plan parkinsonian diseases hemoptysis r/o malignancy pna plan can change abx to augmentin 875 mg [facility] a [facility]
--- NOTE | 2017-02-04 16:39 | PN ---
Progress Note, Physician History of Present Illness: AM: Patient endorses continual improvement with respiratory status. No major complaints Denies fever, chills, cough, SOB, dyspnea No further episodes of hemoptysis O2 requirement improving; 96% on 3L NC Vitals 97.5T 77P 148/77 20 NAD, A&ox3 NCAT, mask-like facies No JVD, lymphadenopathy RRR, s1 s2, No S3/S4, No m/c/g/r Mild bibasilar rhonchi, no wheeze, cough Abdomen soft, NT, ND. No organomegaly U and L Ext WWP, No LE edema AFB Sputum stain negative x 3 HIV negative CRP 7.2 Blood Cx, Sputum Cx neg (01/28) Will require further work-up of bilateral infiltrate etiology in out-pt setting. Hypoxemic respiratory failure and hemoptysis resolved. Pt endorses significant improvement in respiratory condition and stable. Will require O2 support and slow steroid taper Plan: Prednisone 40 mg PO daily; slow taper Supp O2 for home use pt refused bronchoscopy repeat CT chest for f/u in outpatient setting Kale Roa MD, PGY1 Discussed with attending - Current Medication List Current Medications: Active Medications Acetaminophen (Tylenol -) 650 mg PO Q6H PRN PRN Reason: FEVER OR PAIN Last Admin: 01/30/17 21:08 Dose: 650 mg Carbidopa/Levodopa (Sinemet *Cr* 25/100 -) 1 combo PO 0600,1100,1600 [facility] Last Admin: 02/04/17 11:20 Dose: 1 combo Heparin Sodium (Porcine) (Heparin -) 5,000 unit SQ BID [facility] Last Admin: 02/04/17 11:11 Dose: 5,000 unit Piperacillin Sod/Tazobactam (Sod 3.375 gm/ Dextrose) 50 mls @ 100 mls/hr IVPB Q8H-IV MARILYN PRN Reason: Protocol Last Admin: 02/04/17 11:21 Dose: 100 mls/hr Lisinopril (Prinivil) 20 mg PO DAILY [facility] Last Admin: 02/04/17 11:11 Dose: 20 mg Multivitamins/Minerals/Vitamin C (Tab-A-Vit -) 1 tab PO DAILY [facility] Last Admin: 02/04/17 11:12 Dose: 1 tab Prednisone (Deltasone -) 40 mg PO DAILY [facility] Last Admin: 02/04/17 11:12 Dose: 40 mg - Objective Vital Signs: Vital Signs Temperature 97.5 F L 02/04/17 06:25 Pulse Rate 77 02/04/17 11:41 Respiratory Rate 20 02/04/17 10:00 Blood Pressure 148/77 02/04/17 10:00 O2 Sat by Pulse Oximetry (%) 97 02/04/17 11:41 Eyes: Yes: WNL HENT: Yes: WNL, Other (Mask-like facies) Neck: Yes: WNL Cardiovascular: Yes: WNL Respiratory: Yes: WNL, Rhonchi (Mild bibasilar rhonchi appreciable) Gastrointestinal: Yes: WNL Extremities: Yes: WNL Neurological: Yes: WNL, Alert, Oriented Labs: CBC, BMP 02/03/17 06:10 02/04/17 06:10 INR, PTT INR 1.01 (0.82-1.09) 01/27/17 12:20 - ....Imaging X-ray: Report Reviewed (Bibasilar infiltrates. Sparing of costophrenic angles.) Problem List - Problems (1) Respiratory failure with hypoxia Code(s): J96.91 - RESPIRATORY FAILURE, UNSPECIFIED WITH HYPOXIA Visit type - Emergency Visit Emergency Visit: No - New Patient This patient is new to me today: No - Critical Care Critical Care patient: No
== END 2017-02-04 19:43 | disposition home health service (06) | DRG 177 ==
LOC: FER 11:40 → J8W 21:19
PROVIDERS: ADMIT Internal Medicine; ATTEND Registered Nurse
DX: J69.0 Pneumonitis due to inhalation of food and vomit (principal); J96.01 Acute respiratory failure with hypoxia; R04.2 Hemoptysis; E87.5 Hyperkalemia; G20 Parkinson's disease; Z85.51 Personal history of malignant neoplasm of bladder; R13.10 Dysphagia, unspecified; E83.52 Hypercalcemia
CPT/HCPCS: 36415; 36600; 71010-TC; 71020-TC; 71250-TC; 74230-TC; 80048; 80053; 81003; 81015; 82550; 82607; 82803; 83036; 83605; 83615; 83735; 84443; 84484; 85025; 85610; 85651; 85730; 86140; 86480; 87040; 87070; 87116; 87205; 87206; 87389; 87899; 92611-GN; 93005; 93306-TC; 94150; 94640; 94761; 97116-GP; 97162-GP; 99285-25; J1644